=== PATIENT | female | born 1940 | race Caucasian/White ===

== ENCOUNTER 2021-03-28 00:44 | Inpatient (IN) | payer MEDICARE ==
[~2021-03-28] VITALS: Ht 170.2 cm; Wt 71.2 kg
[2021-03-28] MEDS ORDERED: IV NORMAL SALINE 1000ML BAG 1,000 ML IV ONE (01:00)
--- NOTE | 2021-03-28 01:07 | PHYS DOC ---
Past Medical History Past Medical History: COPD Additional Past Medical Histor: Poor historian Past Medical History Limited secondary to poor historian and hard of hearing. Past Surgical History Limited secondary to poor historian and hard of hearing. Smoking Status: Current Every Day Smoker Alcohol Use: None Drug Use: None General Adult EDM: Chief Complaint: Shortness of breath HPI: HPI: Patient is a 80-year-old female with past medical history of COPD who continues to smoke 3 packs a day presents via EMS with 2-week history of generalized malaise, shortness of breath, and diarrhea. Denies known sick contacts. Denies known exposure to COVID-19. Patient reports she has not received the COVID-19 vaccinations. EMS reports upon their arrival patient was noted to have a O2 sat down to 80% on room air. EMS denies that patient wears oxygen at baseline. Patient reportedly has had decreased appetite and not feeling well for the past 10 to 14 days. Patient also with report of unwitnessed fall last night at approximately 2130 in her bedroom where she did strike the right side of her head. History of present illness limited secondary to poor historian and hard of hearing. Review of Systems: Review of Systems: Constitutional: Denies fever or chills ; reports decreased appetite, generalized malaise, and weakness HENT: Denies nasal congestion or epistaxis Respiratory: Reports cough and shortness of breath Cardiovascular: Denies chest pain or palpitations GI: Denies abdominal pain, nausea, or vomiting; reports diarrhea : Denies dysuria or hematuria Musculoskeletal: Denies neck pain Integument: Denies laceration; reports bruising to right forehead Neurologic: Denies headache Review of systems limited secondary to poor historian and hard of hearing. Heart Score: C/O Chest Pain: N/A Current Medications: Current Medications Medications (Trade) Dose Ordered Sig/[place] Start Time Stop Time Status Last Admin Dose Admin Sodium Chloride 1,000 ml @ 1,000 mls/hr 1X ONCE 03/28/21 01:00 03/28/21 01:59 UNV Physical Exam: PE: Constitutional: Elderly, well nourished, no acute distress, non-toxic appearance, hard of hearing HENT: Normocephalic, atraumatic Eyes: PERRL, EOMI, conjunctiva normal, no discharge Neck: Normal range of motion, no tenderness, supple Lungs & Thorax: No respiratory distress, equal chest rise and fall, mild crackles at bases Abdomen: Soft, no tenderness, no guarding/rebound tenderness/distention Skin: Warm, dry, no erythema, no rash Extremities: No tenderness, ROM intact, no edema Neurologic: Alert and oriented X name, no focal deficits noted Psychologic: Affect normal, judgment normal EKG: EKG: @0057 Sinus tachycardia at 103bpm, NO ST elevation, baseline artifact noted primarily to V3, QRS 102ms, QT/QTc 348/458ms Radiology/Procedures: Radiology/Procedures: PROCEDURE: CT HEAD AND CERVICAL SPINE WO CT head without contrast: Reason for examination: Pain after fall. Helical images were obtained through the brain with no contrast administered. Reconstruction was performed in sagittal and coronal planes. Exposure: One or more of the following individualized dose reduction techniques were utilized for this examination: 1. Automated exposure control 2. Adjustment of the mA and/or kV according to patient size 3. Use of iterative reconstruction technique. Ventricular systems are symmetric and not abnormally dilated. No midline shift is seen. There is no evidence of intracranial hemorrhage. There is however some deep white matter microvascular ischemic type changes in the frontal and parietal lobes. There are also small lacunar infarcts in the right centrum semiovale and in the left basal ganglia. No masses or edema are evident. No abnormalities of seen at the orbits. The paranasal sinuses are clear. Mastoid air cells show some opacity which may reflect mastoiditis. No acute skull abnormality is seen. There does appear to be a right frontal convexity scalp hematoma. IMPRESSION: Cerebral atrophy with some microvascular ischemic changes. Chronic lacunar infarcts in the right centrum semiovale and left basal ganglia. No acute intracranial abnormality evident. Right frontal convexity scalp hematoma. CT cervical spine without contrast: Helical images were obtained through the cervical spine from skull base through the thoracic apices with no contrast administered. Reconstruction was performed in sagittal and coronal planes. The C1 ring is intact. The odontoid process appears to be intact and normally centered between the lateral masses of C1. The vertebral bodies of the cervical spine are normally aligned anteriorly and posteriorly. No acute fracture or subl uxation is seen. Posterior elements appear to be intact. There is some hypertrophic spurring off the endplates at the C4-5 disc level without significant spinal stenosis. Remaining intervertebral discs are fairly well- maintained. Prevertebral soft tissues are normal. IMPRESSION: Degenerative disc disease at the C4-5 disc level without spinal stenosis. No acute abnormality in the cervical spine. CT angiogram of the chest and CT abdomen and pelvis with contrast: Helical images were obtained through the chest with intravenous administration of 99 cc Omnipaque 350 using PE protocol with 3-D MIPS reconstruction in sagittal and coronal planes. Helical images were then obtained through the abdomen and pelvis with reconstruction in sagittal and coronal planes. Examination is compromised by motion artifact. No abnormality seen at the thyroid gland. The trachea and mainstem bronchi show no intraluminal lesions. No abnormality seen at the esophagus. The thoracic aorta shows no aneurysmal dilatation or dissection. The heart size is normal with no pericardial effusion. There is no pulmonary embolus. There are emphysematous changes bilaterally throughout the lung garcia and some increase in the markings peripherally consistent with COPD and interstitial fibrosis. No consolidated infiltrates, pleural effusions or pneumothorax are seen. No acute bony abnormalities are seen. No abnormality seen at the liver or spleen. The pancreas shows a small 5.5 mm cystic lesion in the pancreatic tail. Gallbladder is not distended. There appears to be a soft tissue nodule in the region of the right adrenal gland measuring 4 x 2.3 cm in greatest dimension. There is also some soft tissue fullness in the region of the left adrenal gland measuring 2.5 x 1.3 cm in great est dimension. These may represent an adrenal adenoma however adrenal metastases cannot be excluded. Recommend clinical correlation follow-up. The kidneys show no renal masses, renal calculi, hydronephrosis or evidence of obstructive uropathy. There is some diverticulosis in the sigmoid colon without diverticulitis or colitis. Small intestinal tract shows no abnormal dilatation or wall thickening and no obstruction. No abnormality seen at the stomach or duodenum. No abnormality seen at the bladder. Uterus appears atrophic. No free fluid or free air is seen in the abdomen or pelvis. There are some degenerative changes at the L5-S1 disc level. No acute bony abnormalities are seen in the lumbar spine or pelvis. IMPRESSION: No evidence of pulmonary embolus. Diffuse emphysematous changes bilaterally with some interstitial fibrosis. 5.5 mm cystic lesion in the tail the pancreas. Nodules in the adrenal glands bilaterally which may represent adenoma however adrenal metastases cannot be excluded. Recommend clinical correlation follow-up. Diverticulosis in the sigmoid colon without diverticulitis. Degenerative disc disease at the L5-S1 disc level. Electronically signed by: Barbi Del Toro MD (03/28/2021 4:03 AM) [facility] Course & Med Decision Making: Course & Med Decision Making Pertinent Labs and Imaging studies reviewed. (See chart for details) Patient presents via EMS with report of shortness of breath. Patient found to be hypoxic upon their arrival down to 80% on room air. Improved with supplemental O2. Patient also with concern for possible Covid 19 infection. Rapid Covid negative. Covid PCR pending. EKG stable. Labs obtained and posted to chart. Hyponatremia noted. Hypokalemia addressed. Patient with history of diarrhea. CTA chest without acute finding. CT abdomen/pelvis also without acute finding. Hypertension addressed. Patient requiring admission for further evaluation and treatment. Discussed with Dr. Erickson (hospitalist) who is in agreement with admission. Discussed findings and plan with patient, who acknowledges understanding and agreement. COVID-19 CRITERIA: The patient was evaluated during the global COVID-19 pandemic, and that diagnosis was suspected/considered upon their initial presentation. Their evaluation, treatment and testing was consistent with current guidelines for patients who present with complaints or symptoms that may be related to COVID-19. [employer] Disclaimer: [employer] Disclaimer: This electronic medical record was generated, in whole or in part, using a voice recognition dictation system. Departure Departure Impression: Primary Impression: Respiratory failure Qualified Codes: J96.01 - Acute respiratory failure with hypoxia Additional Impressions: Hypoxia Suspected 2019 novel coronavirus infection Diarrhea Qualified Codes: R19.7 - Diarrhea, unspecified Hyponatremia Hypokalemia Hypertension Qualified Codes: I10 - Essential (primary) hypertension Disposition: ADMITTED INPATIENT Admitting Physician: SOPHIA Vargas) Condition: STABLE COVID-19 Assessment: COVID-19 Patient Risks: Age 65 or older: Yes Sign of co-morbidity: Yes Exp to person + for COVID: No Exp to PUI: No Travel from affected area: No Lower respiratory symptoms: No Fever: Yes Other: Yes PPE Use: Full PPE with N95 mask or PAPR: Yes Critical Care Time Critical care time was 30 minutes which includes time at bedside, spent in discussion of patient's care with specialists and/or family members, with interpretation of laboratory and/or radiological studies and is exclusive of procedures. RADHA BENAVIDES DO Mar 28, 2021 01:07
[2021-03-28 01:09] LABS: BASO % 0 % (0-3); EOS % 0 % (0-3); HEMOGLOBIN 15.1 g/dL (12.0-15.5); LYMPH # 0.2 x10^3/uL (1.0-4.8); LYMPH % 2 % (24-48); MEAN CORPUSCULAR HEMOGLOBIN 33 pg (25-35); MEAN CORPUSCULAR HGB CONC 36 g/dL (31-37); MEAN CORPUSCULAR VOLUME 92 fL (79-100); MONO # 0.5 x10^3/uL (0.0-1.1); MONO % 5 % (0-9); NEUT # 9.3 x10^3/uL (1.8-7.7); NEUT % 93 % (31-73); PLATELET COUNT 184 x10^3/uL (140-400); RED BLOOD COUNT 4.57 x10^6/uL (3.50-5.40); RED CELL DISTRIBUTION WIDTH 13.1 % (11.5-14.5)
[2021-03-28] MEDS ORDERED: LABETALOL 20 MG/4 ML DISP.SYRIN. IVP ONE (01:15)
[2021-03-28 01:21] LABS: BILIRUBIN,URINE NEGATIVE (NEG); CLARITY,URINE CLOUDY; COLOR,URINE YELLOW; NITRITE,URINE NEGATIVE (NEG); PROTEIN,URINE >=300 mg/dL (NEG-TRACE)
[2021-03-28 01:27] LABS: INFLUENZA A PATIENT NEGATIVE (NEGATIVE); INFLUENZA B PATIENT NEGATIVE (NEGATIVE)
[2021-03-28 01:34] LABS: AMORPHOUS SEDIMENT,UR PRESENT /HPF; BACTERIA,URINE FEW /HPF (0-FEW)
[2021-03-28 01:43] LABS: CALCIUM 7.7 mg/dL (8.5-10.1); CREATININE 0.9 mg/dL (0.6-1.0); GFR 60.4
[2021-03-28 01:50] LABS: ALBUMIN 3.1 g/dL (3.4-5.0); ALBUMIN/GLOBULIN RATIO 1.1 (1.0-1.7); MAGNESIUM 1.9 mg/dL (1.8-2.4); TOTAL BILIRUBIN 0.6 mg/dL (0.2-1.0)
[2021-03-28] MEDS ORDERED: ONDANSETRON PF 4 MG/2 ML VIAL. IVP PRN (02:30)
[2021-03-28 02:37] LABS: % BANDS 1 % (0-9); % LYMPHS 4 % (24-48); % MONOS 6 % (0-10); % SEGS 89 % (35-66); PLT ESTIMATE ADEQUATE (ADEQUATE)
[2021-03-28] MEDS ORDERED: IOHEXOL 350 MG/ML 100 ML VIAL. IV ONE (02:45)
[2021-03-28] MEDS ORDERED: CONTRAST GIVEN. MC PRN (03:00)
[2021-03-28] MEDS ORDERED: LABETALOL 20 MG/4 ML DISP.SYRIN. IVP PRN (03:30)
[2021-03-28 03:55] VITALS: BP 157/76
--- NOTE | 2021-03-28 04:05 | RAD ---
CT head without contrast: Reason for examination: Pain after fall. Helical images were obtained through the brain with no contrast administered. Reconstruction was perf ormed in sagittal and coronal planes. Exposure: One or more of the following individualized dose reduction techniques were utilized for thi s examination: 1. Automated exposure control 2. Adjustment of the mA and/or kV according to patient size 3. Use of iterative reconstruction technique. Ventricular systems are symmetric and not abnormally dilated. No midline shift is seen. There is no e vidence of intracranial hemorrhage. There is however some deep white matter microvascular ischemic ty pe changes in the frontal and parietal lobes. There are also small lacunar infarcts in the right cent rum semiovale and in the left basal ganglia. No masses or edema are evident. No abnormalities of seen at the orbits. The paranasal sinuses are clear. Mastoid air cells show some opacity which may reflec t mastoiditis. No acute skull abnormality is seen. There does appear to be a right frontal convexity scalp hematoma. IMPRESSION: Cerebral atrophy with some microvascular ischemic changes. Chronic lacunar infarcts in the right centrum semiovale and left basal ganglia. No acute intracranial abnormality evident. Right frontal convexity scalp hematoma. CT cervical spine without contrast: Helical images were obtained through the cervical spine from skull base through the thoracic apices w ith no contrast administered. Reconstruction was performed in sagittal and coronal planes. The C1 ring is intact. The odontoid process appears to be intact and normally centered between the la teral masses of C1. The vertebral bodies of the cervical spine are normally aligned anteriorly and po steriorly. No acute fracture or subluxation is seen. Posterior elements appear to be intact. There is some hypertrophic spurring off the endplates at the C4-5 disc level without significant spinal steno sis. Remaining intervertebral discs are fairly well-maintained. Prevertebral soft tissues are normal. IMPRESSION: Degenerative disc disease at the C4-5 disc level without spinal stenosis. No acute abnormality in the cervical spine. CT angiogram of the chest and CT abdomen and pelvis with contrast: Helical images were obtained through the chest with intravenous administration of 99 cc Omnipaque 350 using PE protocol with 3-D MIPS reconstruction in sagittal and coronal planes. Helical images were t hen obtained through the abdomen and pelvis with reconstruction in sagittal and coronal planes. [place] is compromised by motion artifact. No abnormality seen at the thyroid gland. The trachea and mainstem bronchi show no intraluminal lesio ns. No abnormality seen at the esophagus. The thoracic aorta shows no aneurysmal dilatation or dissec tion. The heart size is normal with no pericardial effusion. There is no pulmonary embolus. There are emphysematous changes bilaterally throughout the lung garcia and some increase in the markings perip herally consistent with COPD and interstitial fibrosis. No consolidated infiltrates, pleural effusion s or pneumothorax are seen. No acute bony abnormalities are seen. No abnormality seen at the liver or spleen. The pancreas shows a small 5.5 mm cystic lesion in the pa ncreatic tail. Gallbladder is not distended. There appears to be a soft tissue nodule in the region o f the right adrenal gland measuring 4 x 2.3 cm in greatest dimension. There is also some soft tissue fullness in the region of the left adrenal gland measuring 2.5 x 1.3 cm in greatest dimension. These may represent an adrenal adenoma however adrenal metastases cannot be excluded. Recommend clinical co rrelation follow-up. The kidneys show no renal masses, renal calculi, hydronephrosis or evidence of o bstructive uropathy. There is some diverticulosis in the sigmoid colon without diverticulitis or coli tis. Small intestinal tract shows no abnormal dilatation or wall thickening and no obstruction. No ab normality seen at the stomach or duodenum. No abnormality seen at the bladder. Uterus appears atrophic. No free fluid or free air is seen in the abdomen or pelvis. There are some degenerative changes at the L5-S1 disc level. No acute bony abnorm alities are seen in the lumbar spine or pelvis. IMPRESSION: No evidence of pulmonary embolus. Diffuse emphysematous changes bilaterally with some interstitial fibrosis. 5.5 mm cystic lesion in the tail the pancreas. Nodules in the adrenal glands bilaterally which may represent adenoma however adrenal metastases [place] ot be excluded. Recommend clinical correlation follow-up. Diverticulosis in the sigmoid colon without diverticulitis. Degenerative disc disease at the L5-S1 disc level. Electronically signed by: Barbi Del Toro MD (03/28/2021 4:03 AM) [facility]
[2021-03-28] MEDS ORDERED: POTASSIUM CHLORIDE 10 MEQ TABLET.ER. PO ONE (04:30)
[2021-03-28 07:00] VITALS: BP 152/50
--- NOTE | 2021-03-28 10:52 | PDOC1 ---
History and Physical Date of Admission Date of Admission DATE: 03/28/21 TIME: 10:51 Identification/Chief Complaint Chief Complaint SOA, CHILLS, FALL WEAKNESS X 10 DAYS, WORSE History of Present Illness History of Present Illness 80-year-old female with past medical history of COPD continues to smoke 3 packs a day presented via EMS last night with 2-week history of generalized malaise, shortness of breath, and diarrhea. covid pos here Denies known exposure to COVID-19. she has not received the COVID-19 vaccinations. EMS reported upon their arrival patient was noted to have a O2 sat down to 80% on room air. EMS denies that patient wears oxygen at baseline. Patient reportedly has had decreased appetite and not feeling well for the past 10 to 14 days. Patient found to be hypoxic upon their arrival down to 80% on room air. Improved with supplemental O2. concern for possible Covid 19 infection. Rapid Covid negative. Covid PCR pos. EKG stable. Hyponatremia noted. Hypokalemia addressed. Patient with history of diarrhea. unwitnessed fall last night at approximately 2130 9-04 in her bedroom where she did strike the right side of her head Past Medical History Past Medical History Past Medical History Past Medical History: COPD Additional Past Medical Histor: Poor historian Past Medical History poor historian and hard of hearing./ COPD Past Surgical History poor historian and hard of hearing. Smoking Status: Current Every Day Smoker Alcohol Use: None Drug Use: None fhx copd Cardiovascular: HTN Psych: Anxiety Musculoskeletal: Osteoarthritis Family History Family History: Heart Disease, High Cholestrol, Hypertension Social History Smoke: <1 pack per day ALCOHOL: rare Drugs: None Current Problem List Problem List Problems Medical Problems: (1) Diarrhea Status: Acute (2) Hypertension Status: Acute (3) Hypokalemia Status: Acute (4) Hyponatremia Status: Acute (5) Hypoxia Status: Acute (6) Respiratory failure Status: Acute (7) Suspected 2019 novel coronavirus infection Status: Acute Current Medications Current Medications Current Medications Sodium Chloride 1,000 ml @ 1,000 mls/hr 1X ONCE IV Last administered on 03/28/21at 01:51; Start 03/28/21 at 01:00; Stop 03/28/21 at 01:59; Status DC Labetalol HCl (Normodyne Iv Push) 10 mg 1X ONCE IVP Last administered on 03/28/21at 01:52; Start 03/28/21 at 01:15; Stop 03/28/21 at 01:49; Status DC Ondansetron HCl (Zofran) 4 mg PRN Q8HRS PRN IVP NAUSEA/VOMITING; Start 03/28/21 at 02:30; Stop 03/29/21 at 02:29 Iohexol (Omnipaque 350 Mg/ml) 100 ml 1X ONCE IV ; Start 03/28/21 at 02:45; Stop 03/28/21 at 02:49; Status DC Info (CONTRAST GIVEN -- Rx MONITORING) 1 each PRN DAILY PRN MC SEE COMMENTS; Start 03/28/21 at 03:00; Stop 03/30/21 at 02:59 Labetalol HCl (Normodyne Iv Push) 10 mg PRN Q2HR PRN IVP HYPERTENSION; Start at 03:30; Stop 03/29/21 at 03:29 Potassium Chloride (Klor-Con) 40 meq 1X ONCE PO Last administered on 03/28/21at 04:37; Start 03/28/21 at 04:30; Stop 03/28/21 at 04:31; Status DC Allergies Allergies: Coded Allergies: No Known Drug Allergies (Unverified , 03/28/21) ROS Review of System Constitutional: Denies fever or chills ; reports decreased appetite, generalized malaise, and weakness HENT: Denies nasal congestion or epistaxis Respiratory: POS cough and shortness of breath Cardiovascular: NO chest pain or palpitations GI: Denies abdominal pain, nausea, or vomiting; reports diarrhea : Denies dysuria or hematuria Musculoskeletal: Denies neck pain Integument: Denies laceration; reports bruising to right forehead Neurologic: Denies headache 14 PT Review of systems limited secondary to poor historian General: YES: Chills, Fatigue, Malaise, Appetite PSYCHOLOGICAL ROS: YES: Disorientation, Memory difficulties Eyes: Yes Decreased vision HEENT: No: Heacaches, Visual Changes, Hearing change, Nasal congestion, Nasal discharge, Oral lesions, Sinus pain, Sore Throat, Epistaxis, Sneezing, Snoring, Tinnitus, Vertigo, Vocal changes, Other ALLERGY AND IMMUNOLOGY: No: Hives, Insect Bite Sensitivity, Itchy/Watery Eyes, Nasal Congestion, Post Nasal Drip, Seasonal Allergies, Other Hematological and Lymphatic: No: Bleeding Problems, Blood Clots, Blood Transfusions, Brusing, Night Sweats, Pallor, Swollen Lymph Nodes, Other ENDOCRINE: No: Breast Changes, Galactorrhea, Hair Pattern Changes, Hot Flashes, Malaise/lethargy, Mood Swings, Palpitations, Polydipsia/polyuria, Skin Changes, Temperature Intolerance, Unexpected Weight Changes, Other Breast: No New/Changing Breast Lumps, No Nipple changes, No Nipple discharge, No Other Respiratory: YES: Cough, Shortness of breath Cardiovascular: No Chest Pain, No Palpitations, No Orthopnea, No Paroxysmal Noc. Dyspnea, No Edema, No Lt Headedness, No Other Gastrointestinal: No Nausea, No Vomiting, No Abdominal Pain, No Diarrhea, No Constipation, No Melena, No Hematochezia, No Other Genitourinary: No Dysuria, No Frequency, No Incontinence, No Hematuria, No Ret ention, No Discharge, No Urgency, No Pain, No Flank Pain, No Other, No , No , No , No , No , No , No Musculoskeletal: Yes Joint Stiffness; No Gait Disturbance, No Joint Pain, No Joint Swelling, No Muscle Pain, No Muscular Weakness, No Pain In:, No Swelling In:, No Other Neurological: No Behavorial Changes, No Bowel/Bladder ControlChng, No Confusion, No Dizziness, No Gait Disturbance, No Headaches, No Impaired Coord/balance, No Memory Loss, No Numbness/Tingling, No Seizures, No Speech Problems, No Tremors, No Visual Changes, No Weakness, No Other Skin: Yes Dry Skin; No Eczema, No Hair Changes, No Lumps, No Mole Changes, No Mottling, No Nail Changes, No Pruritus, No Rash, No Skin Lesion Changes, No Other, No Acne Physical Exam Physical Exam onstitutional: Elderly, well nourished, no acute distress, non-toxic appearance, hard of hearing, confused HENT: Normocephalic, atraumatic Eyes: PERRL, EOMI, conjunctiva normal, no discharge Neck: Normal range of motion, no tenderness, supple Lungs & Thorax: No respiratory distress, equal chest rise and fall, mild crackles at bases Abdomen: Soft, no tenderness, no guarding/rebound tenderness/distention Skin: Warm, dry, no erythema, no rash Extremities: No tenderness, ROM intact, no edema Neurologic: Alert and oriented X name, no focal deficits noted General: Alert, Cooperative, No acute distress HEENT: Atraumatic, Mucous membr. moist/pink Heart: RRR, no gallops Breasts: Not examined Abdomen: Normal bowel sounds, Soft Rectal Exam: not examined PELVIC: Examination not indicated Extremities: No cyanosis Neuro: Normal speech, Cranial nerves 3-12 NL Psych/Mental Status: Mental status NL, Mood NL Vitals Vitals Vital Signs Date Time Temp Pulse Resp B/P (MAP) Pulse Ox O2 Delivery O2 Flow Rate FiO2 03/28/21 07:00 100.0 79 20 152/50 (84) 94 Nasal Cannula 100.0 03/28/21 05:16 3.0 Labs Labs Laboratory Tests Test 03/28/21 00:57 03/28/21 01:00 03/28/21 01:11 03/28/21 01:23 White Blood Count 10.0 x10^3/uL (4.0-11.0) Red Blood Count 4.57 x10^6/uL (3.50-5.40) Hemoglobin 15.1 g/dL (12.0-15.5) Hematocrit 42.0 % (36.0-47.0) Mean Corpuscular Volume 92 fL (79-100) Mean Corpuscular Hemoglobin 33 pg (25-35) Mean Corpuscular Hemoglobin Concent 36 g/dL (31-37) Red Cell Distribution Width 13.1 % (11.5-14.5) Platelet Count 184 x10^3/uL (140-400) Neutrophils (%) (Auto) 93 % (31-73) Lymphocytes (%) (Auto) 2 % (24-48) Monocytes (%) (Auto) 5 % (0-9) Eosinophils (%) (Auto) 0 % (0-3) Basophils (%) (Auto) 0 % (0-3) Neutrophils # (Auto) 9.3 x10^3/uL (1.8-7.7) Lymphocytes # (Auto) 0.2 x10^3/uL (1.0-4.8) Monocytes # (Auto) 0.5 x10^3/uL (0.0-1.1) Eosinophils # (Auto) 0.0 x10^3/uL (0.0-0.7) Basophils # (Auto) 0.0 x10^3/uL (0.0-0.2) Segmented Neutrophils % 89 % (35-66) Band Neutrophils % 1 % (0-9) Lymphocytes % 4 % (24-48) Monocytes % 6 % (0-10) Platelet Estimate Adequate (ADEQUATE) Lactic Acid Level 1.8 mmol/L (0.4-2.0) Influenza Type A Antigen Negative (NEGATIVE) Influenza Type B Antigen Negative (NEGATIVE) SARS-CoV-2 Antigen (Rapid) Negative (NEGATIVE) Urine Collection Type U cath Urine Color Yellow Urine Clarity Cloudy Urine pH 6.0 (<5.0-8.0) Urine Specific [place] >=1.030 (1.000-1.030) Urine Protein >=300 mg/dL (NEG-TRACE) Urine Glucose (UA) Negative mg/dL (NEG) Urine Ketones (Stick) 40 mg/dL (NEG) Urine Blood Large (NEG) Urine Nitrite Negative (NEG) Urine Bilirubin Negative (NEG) Urine Urobilinogen Dipstick 1.0 mg/dL (0.2 mg/dL) Urine Leukocyte Esterase Negative (NEG) Urine RBC 11-20 /HPF (0-2) Urine WBC 5-10 /HPF (0-4) Urine Squamous Epithelial Cells Few /LPF Urine Amorphous Sediment Present /HPF Urine Bacteria Few /HPF (0-FEW) Urine Mucus Marked /LPF Sodium Level 126 mmol/L (136-145) Potassium Level 3.0 mmol/L (3.5-5.1) Chloride Level 90 mmol/L (98-107) Carbon Dioxide Level 27 mmol/L (21-32) Anion Gap 9 (6-14) Blood Urea Nitrogen 13 mg/dL (7-20) Creatinine 0.9 mg/dL (0.6-1.0) Estimated GFR (Cockcroft-Gault) 60.4 BUN/Creatinine Ratio 14 (6-20) Glucose Level 145 mg/dL (70-99) Calcium Level 7.7 mg/dL (8.5-10.1) Magnesium Level 1.9 mg/dL (1.8-2.4) Total Bilirubin 0.6 mg/dL (0.2-1.0) Aspartate Amino Transf (AST/SGOT) 56 U/L (15-37) Alanine Aminotransferase (ALT/SGPT) 42 U/L (14-59) Alkaline Phosphatase 95 U/L (46-116) Creatine Kinase 507 U/L (26-192) Creatine Kinase MB (Mass) 4.0 ng/mL (0.0-3.6) Creatine Kinase MB Relative Index 0.8 % (0-4) Troponin I Quantitative 0.044 ng/mL (0.000-0.055) XO-Uur-F-Type Natriuretic Peptide 462 pg/mL (0-449) Total Protein 6.0 g/dL (6.4-8.2) Albumin 3.1 g/dL (3.4-5.0) Albumin/Globulin Ratio 1.1 (1.0-1.7) Laboratory Tests Test 03/28/21 00:57 03/28/21 01:00 03/28/21 01:11 03/28/21 01:23 White Blood Count 10.0 x10^3/uL (4.0-11.0) Red Blood Count 4.57 x10^6/uL (3.50-5.40) Hemoglobin 15.1 g/dL (12.0-15.5) Hematocrit 42.0 % (36.0-47.0) Mean Corpuscular Volume 92 fL (79-100) Mean Corpuscular Hemoglobin 33 pg (25-35) Mean Corpuscular Hemoglobin Concent 36 g/dL (31-37) Red Cell Distribution Width 13.1 % (11.5-14.5) Platelet Count 184 x10^3/uL (140-400) Neutrophils (%) (Auto) 93 % (31-73) Lymphocytes (%) (Auto) 2 % (24-48) Monocytes (%) (Auto) 5 % (0-9) Eosinophils (%) (Auto) 0 % (0-3) Basophils (%) (Auto) 0 % (0-3) Neutrophils # (Auto) 9.3 x10^3/uL (1.8-7.7) Lymphocytes # (Auto) 0.2 x10^3/uL (1.0-4.8) Monocytes # (Auto) 0.5 x10^3/uL (0.0-1.1) Eosinophils # (Auto) 0.0 x10^3/uL (0.0-0.7) Basophils # (Auto) 0.0 x10^3/uL (0.0-0.2) Segmented Neutrophils % 89 % (35-66) Band Neutrophils % 1 % (0-9) Lymphocytes % 4 % (24-48) Monocytes % 6 % (0-10) Platelet Estimate Adequate (ADEQUATE) Lactic Acid Level 1.8 mmol/L (0.4-2.0) Influenza Type A Antigen Negative (NEGATIVE) Influenza Type B Antigen Negative (NEGATIVE) SARS-CoV-2 Antigen (Rapid) Negative (NEGATIVE) Urine Collection Type U cath Urine Color Yellow Urine Clarity Cloudy Urine pH 6.0 (<5.0-8.0) Urine Specific [place] >=1.030 (1.000-1.030) Urine Protein >=300 mg/dL (NEG-TRACE) Urine Glucose (UA) Negative mg/dL (NEG) Urine Ketones (Stick) 40 mg/dL (NEG) Urine Blood Large (NEG) Urine Nitrite Negative (NEG) Urine Bilirubin Negative (NEG) Urine Urobilinogen Dipstick 1.0 mg/dL (0.2 mg/dL) Urine Leukocyte Esterase Negative (NEG) Urine RBC 11-20 /HPF (0-2) Urine WBC 5-10 /HPF (0-4) Urine Squamous Epithelial Cells Few /LPF Urine Amorphous Sediment Present /HPF Urine Bacteria Few /HPF (0-FEW) Urine Mucus Marked /LPF Sodium Level 126 mmol/L (136-145) Potassium Level 3.0 mmol/L (3.5-5.1) Chloride Level 90 mmol/L (98-107) Carbon Dioxide Level 27 mmol/L (21-32) Anion Gap 9 (6-14) Blood Urea Nitrogen 13 mg/dL (7-20) Creatinine 0.9 mg/dL (0.6-1.0) Estimated GFR (Cockcroft-Gault) 60.4 BUN/Creatinine Ratio 14 (6-20) Glucose Level 145 mg/dL (70-99) Calcium Level 7.7 mg/dL (8.5-10.1) Magnesium Level 1.9 mg/dL (1.8-2.4) Total Bilirubin 0.6 mg/dL (0.2-1.0) Aspartate Amino Transf (AST/SGOT) 56 U/L (15-37) Alanine Aminotransferase (ALT/SGPT) 42 U/L (14-59) Alkaline Phosphatase 95 U/L (46-116) Creatine Kinase 507 U/L (26-192) Creatine Kinase MB (Mass) 4.0 ng/mL (0.0-3.6) Creatine Kinase MB Relative Index 0.8 % (0-4) Troponin I Quantitative 0.044 ng/mL (0.000-0.055) QP-Tbd-P-Type Natriuretic Peptide 462 pg/mL (0-449) Total Protein 6.0 g/dL (6.4-8.2) Albumin 3.1 g/dL (3.4-5.0) Albumin/Globulin Ratio 1.1 (1.0-1.7) Images Images CT head without contrast: Reason for examination: Pain after fall. Helical images were obtained through the brain with no contrast administered. Reconstruction was performed in sagittal and coronal planes. Exposure: One or more of the following individualized dose reduction techniques were utilized for this examination: 1. Automated exposure control 2. Adjustment of the mA and/or kV according to patient size 3. Use of iterative reconstruction technique. Ventricular systems are symmetric and not abnormally dilated. No midline shift is seen. There is no evidence of intracranial hemorrhage. There is however some deep white matter microvascular ischemic type changes in the frontal and parietal lobes. There are also small lacunar infarcts in the right centrum semiovale and in the left basal ganglia. No masses or edema are evident. No abnormalities of seen at the orbits. The paranasal sinuses are clear. Mastoid air cells show some opacity which may reflect mastoiditis. No acute skull abnormality is seen. There does appear to be a right frontal convexity scalp hematoma. IMPRESSION: Cerebral atrophy with some microvascular ischemic changes. Chronic lacunar infarcts in the right centrum semiovale and left basal ganglia. No acute intracranial abnormality evident. Right frontal convexity scalp hematoma. CT cervical spine without contrast: Helical images were obtained through the cervical spine from skull base through the thoracic apices with no contrast administered. Reconstruction was performed in sagittal and coronal planes. The C1 ring is intact. The odontoid process appears to be intact and normally centered between the lateral masses of C1. The vertebral bodies of the cervical spine are normally aligned anteriorly and posteriorly. No acute fracture or subluxation is seen. Posterior elements appear to be intact. There is some hypertrophic spurring off the endplates at the C4-5 disc level without significant spinal stenosis. Remaining intervertebral discs are fairly well- maintained. Prevertebral soft tissues are normal. IMPRESSION: Degenerative disc disease at the C4-5 disc level without spinal stenosis. No acute abnormality in the cervical spine. CT angiogram of the chest and CT abdomen and pelvis with contrast: Helical images were obtained through the chest with intravenous administration of 99 cc Omnipaque 350 using PE protocol with 3-D MIPS reconstruction in sag ittal and coronal planes. Helical images were then obtained through the abdomen and pelvis with reconstruction in sagittal and coronal planes. Examination is compromised by motion artifact. No abnormality seen at the thyroid gland. The trachea and mainstem bronchi show no intraluminal lesions. No abnormality seen at the esophagus. The thoracic aorta shows no aneurysmal dilatation or dissection. The heart size is normal with no pericardial effusion. There is no pulmonary embolus. There are emphysematous changes bilaterally throughout the lung garcia and some increase in the markings peripherally consistent with COPD and interstitial fibrosis. No consolidated infiltrates, pleural effusions or pneumothorax are seen. No acute bony abnormalities are seen. No abnormality seen at the liver or spleen. The pancreas shows a small 5.5 mm cystic lesion in the pancreatic tail. Gallbladder is not distended. There appears to be a soft tissue nodule in the region of the right adrenal gland measuring 4 x 2.3 cm in greatest dimension. There is also some soft tissue fullness in the region of the left adrenal gland measuring 2.5 x 1.3 cm in greatest dimension. These may represent an adrenal adenoma however adrenal metastases cannot be excluded. Recommend clinical correlation follow-up. The kidneys show no renal masses, renal calculi, hydronephrosis or evidence of obstructive uropathy. There is some diverticulosis in the sigmoid colon without diverticulitis or colitis. Small intestinal tract shows no abnormal dilatation or wall thickening and no obstruction. No abnormality seen at the stomach or duodenum. No abnormality seen at the bladder. Uterus appears atrophic. No free fluid or free air is seen in the abdomen or pelvis. There are some degenerative changes at the L5-S1 disc level. No acute bony abnormalities are seen in the lumbar spine or pelvis. IMPRESSION: No evidence of pulmonary embolus. Diffuse emphysematous changes bilaterally with some interstitial fibrosis. 5.5 mm cystic lesion in the tail the pancreas. Nodules in the adrenal glands bilaterally which may represent adenoma however adrenal metastases cannot be excluded. Recommend clinical correlation follow-up. Diverticulosis in the sigmoid colon without diverticulitis. Degenerative disc disease at the L5-S1 disc level. Electronically signed by: Barbi Davidson MD (03/28/2021 4:03 AM) [facility] DICTATED and SIGNED BY: BARBI DAVIDSON MD DATE: 03/28/21 [id number] 0 talk about your own wishes for healthcare in case youre ever not able to tell your loved ones or healthcare team what your wishes are. If you became really sick tomorrow, would your loved ones or healthcare team know what your wishes were? Here are some examples of different sets of goals and health care directiv es for your conversations: My wish is to use all medical therapies including resuscitation (such as CPR) and artificial life-sustaining treatments (such as machines and medicine) in an intensive care unit, to keep me alive if at all possible. My wish is to live as long as possible, but I dont want attempts to bring me back to life if my heart and breathing stop. I would like full medical care but without using resuscitation or artificial life-sustaining intensive treatments, if these are unlikely to make me live longer or restore me to a certain quality of life. I will accept treatments that try to fix medical problems, but if Im not getting better or going to have a certain quality of life, I would want to switch to focusing only on my comfort and letting my happen naturally. My wish is for healthcare to focus on my comfort and lessen suffering. I would like medical care that focuses only on my quality of life and that allows me to naturally. Consider: What does a good quality of life m [place] for me? For many people, it is the ability to live independently and tell their own story. I may define it differently. Under what circumstances would I not want to be kept alive by medical treatments, resuscitation, or intensive care? What kind of changes to my health or life might make me change my mind? If I clearly am facing the last chapter of my life, how do I want the story to end? Who do I want to speak for me if I cant speak for myself? Do they understand my preferences? Are they willing to assume the role of my Durable Power of Production Dispatcher? Can I change my Goals of Care Designation? Yes, your Goals of Care Designation can be changed at any time. It should be reviewed if: your health condition changes your circumstances change (such as new understanding) you are transferred or admitted to another healthcare setting dpoa review, to pt portal 17 min and question review VTE Prophylaxis Ordered VTE Prophylaxis Devices: No VTE Pharmacological Prophylaxi: Yes Assessment/Plan Assessment/Plan impression COVID 19 POS PNEUMONIA mild hyponatremia, hypokalemia Diffuse emphysematous changes bilaterally with some interstitial fibrosis. 5.5 mm cystic lesion in the tail the pancreas. Nodules in the adrenal glands bilaterally which may represent adenoma however adrenal metastases cannot be excluded. Recommend clinical correlation follow-up. Diverticulosis in the sigmoid colon without diverticulitis. Degenerative disc disease at the L5-S1 disc level. Cerebral atrophy with microvascular ischemic changes. Chronic lacunar infarcts in the right centrum semiovale and left basal ganglia. No acute intracranial abnormality evident. by ct head Right frontal convexity scalp hematoma. DNR STATUS PLAN ADMIT O2 support pulm consult dvt prophylaxis home meds neurology consult ECHO Justifications for Admission Other Justification TERA SERRANO MD Mar 28, 2021 10:52
[2021-03-28 11:00] VITALS: BP 175/87
[2021-03-28] MEDS: IPRATROPIUM/ALBUTEROL 20/100mcg/INH INHALER. INH SCH ×3 (12:56→20:00)
[2021-03-28] MEDS: NICOTINE 21MG PATCH. TD SCH (12:57)
[2021-03-28] MEDS: AA 4.25 %/CALCIUM/LYTES/D5W 1,000 ML IV SCH (12:57)
[2021-03-28] MEDS: DEXAMETHASONE SOD PHOS 4 MG/ML VIAL IVP SCH (12:58)
[2021-03-28] MEDS ORDERED: diphenhydrAMINE 50 MG/ML VIAL IVP PRN (14:30)
[2021-03-28] MEDS ORDERED: DOCUSATE SODIUM 100 MG CAPSULE. PO PRN (14:30)
[2021-03-28] MEDS ORDERED: ACETAMINOPHEN 325 MG TABLET. PO PRN (14:30)
[2021-03-28] MEDS ORDERED: ONDANSETRON PF 4 MG/2 ML VIAL. IV PRN (14:30)
[2021-03-28] MEDS ORDERED: 0.9 % SODIUM CHLORIDE 10 ML DISP.SYRIN. IV PRN (14:30)
[2021-03-28] MEDS ORDERED: guaiFENesin ORAL 200 MG/10 ML LIQUID. PO PRN (14:30)
[2021-03-28] MEDS ORDERED: MAG HYDROX/ALUMINUM HYD/SIMETH 30 ML ORAL.SUSP PO PRN (14:30)
[2021-03-28] MEDS ORDERED: IPRATRPIUM/ALBUTEROL 0.5/2.5MG 3 ML NEBU. NEB SCH (14:30)
--- NOTE | 2021-03-28 14:58 | EKG ---
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
[2021-03-28 15:00] VITALS: BP 162/80
[2021-03-28] MEDS ORDERED: POTASSIUM CHLORIDE 20 MEQ TABLET.ER. PO ONE (15:00)
[2021-03-28] MEDS ORDERED: ENOXAPARIN 40 MG/0.4 ML SYRINGE. SQ SCH (16:00)
[2021-03-28] MEDS ORDERED: MORPHINE SULFATE 4 MG/ML INJ. IV PRN (16:00)
[2021-03-28] MEDS: IV NORMAL SALINE 1000ML BAG 1,000 ML IV SCH (16:07)
[2021-03-28] MEDS: PIPERACILLIN/TAZOBACTAM 3.375 GM in IV NORMAL SALINE 50ML 50 ML IV SCH (18:00)
[2021-03-28] MEDS: HEPARIN 25,000UTS/250ML PREMIX 250 ML IV PRN (18:29)
[2021-03-28] MEDS ORDERED: HEPARIN for IV BOLUS 10,000 UNIT/10 ML VIAL. IV PRN (18:30)
[2021-03-28 19:00] VITALS: BP 157/77
[2021-03-28] MEDS: LACTOBACILLUS RHAMNOSUS GG 1 CAPSULE. PO SCH (20:39)
[2021-03-28] MEDS: MORPHINE SULFATE 2 MG/ML INJ. IVP PRN (20:40)
[2021-03-28 23:00] VITALS: BP 151/66
[2021-03-29] MEDS: PIPERACILLIN/TAZOBACTAM 3.375 GM in IV NORMAL SALINE 50ML 50 ML IV SCH ×5 (00:34→23:50)
[2021-03-29] MEDS: MORPHINE SULFATE 2 MG/ML INJ. IVP PRN ×10 (00:40→23:52)
[2021-03-29] MEDS: AA 4.25 %/CALCIUM/LYTES/D5W 1,000 ML IV SCH ×3 (02:47→23:51)
[2021-03-29 03:34] VITALS: BP 154/73
[2021-03-29] MEDS: IV NORMAL SALINE 1000ML BAG 1,000 ML IV SCH (05:54)
[2021-03-29 06:50] LABS: BASO % 0 % (0-3); EOS % 0 % (0-3); HEMATOCRIT 39.5 % (36.0-47.0); HEMOGLOBIN 14.1 g/dL (12.0-15.5); LYMPH # 0.2 x10^3/uL (1.0-4.8); LYMPH % 2 % (24-48); MEAN CORPUSCULAR HEMOGLOBIN 33 pg (25-35); MEAN CORPUSCULAR HGB CONC 36 g/dL (31-37); MEAN CORPUSCULAR VOLUME 93 fL (79-100); MONO # 0.4 x10^3/uL (0.0-1.1); MONO % 4 % (0-9); NEUT # 11.2 x10^3/uL (1.8-7.7); NEUT % 95 % (31-73); PLATELET COUNT 161 x10^3/uL (140-400); RED BLOOD COUNT 4.25 x10^6/uL (3.50-5.40); RED CELL DISTRIBUTION WIDTH 13.3 % (11.5-14.5); WHITE BLOOD COUNT 11.8 x10^3/uL (4.0-11.0)
[2021-03-29 07:00] VITALS: BP 168/89
[2021-03-29 07:42] LABS: ALBUMIN 2.6 g/dL (3.4-5.0); ALBUMIN/GLOBULIN RATIO 0.8 (1.0-1.7); CALCIUM 8.3 mg/dL (8.5-10.1); GFR 53.5; POTASSIUM 3.2 mmol/L (3.5-5.1); TOTAL BILIRUBIN 0.7 mg/dL (0.2-1.0)
[2021-03-29] MEDS: IPRATROPIUM/ALBUTEROL 20/100mcg/INH INHALER. INH SCH ×4 (08:19→20:00)
[2021-03-29] MEDS: POTASSIUM CHLORIDE 20 MEQ TABLET.ER. PO SCH (08:19)
[2021-03-29] MEDS: LACTOBACILLUS RHAMNOSUS GG 1 CAPSULE. PO SCH ×2 (08:19→20:16)
[2021-03-29] MEDS: DEXAMETHASONE SOD PHOS 4 MG/ML VIAL IVP SCH (08:19)
[2021-03-29] MEDS: NICOTINE 21MG PATCH. TD SCH (08:20)
[2021-03-29] MEDS: HEPARIN 25,000UTS/250ML PREMIX 250 ML IV PRN (09:53)
[2021-03-29 11:00] VITALS: BP 166/86
--- NOTE | 2021-03-29 12:21 | PDOC2 ---
CONSULT Date of Consult Date of Consult DATE: 03/29/21 TIME: 12:21 Reason for Consult Reason for Consult: Non-STEMI Referring Physician Referring Physician: Dr. Torres Identification/Chief Complaint Chief Complaint Shortness of breath Source Source: Chart review, Patient History of Present Illness Reason for Visit: 80-year-old female with history of COPD presented with 2-week history of generalized weakness, shortness of breath, diarrhea and was found to have acute hypoxic respiratory failure secondary to Covid pneumonia. Cardiology has been consulted for elevated troponin level. Patient apparently had a fall last night but denied any syncope. She is not a very good historian but denied any chest pain as such. Past Medical History Cardiovascular: HTN Pulmonary: COPD Psych: Anxiety Musculoskeletal: Osteoarthritis Family History Family History: Heart Disease, High Cholestrol, Hypertension Social History <1 pack per day ALCOHOL: rare Drugs: None Current Problem List Problem List Problems Medical Problems: (1) Diarrhea Status: Acute (2) Hypertension Status: Acute (3) Hypokalemia Status: Acute (4) Hyponatremia Status: Acute (5) Hypoxia Status: Acute (6) Respiratory failure Status: Acute (7) Suspected 2019 novel coronavirus infection Status: Acute Current Medications Current Medications Current Medications Sodium Chloride 1,000 ml @ 1,000 mls/hr 1X ONCE IV Last administered on 03/28/21at 01:51; Start 03/28/21 at 01:00; Stop 03/28/21 at 01:59; Status DC Labetalol HCl (Normodyne Iv Push) 10 mg 1X ONCE IVP Last administered on 03/28/21at 01:52; Start 03/28/21 at 01:15; Stop 03/28/21 at 01:49; Status DC Ondansetron HCl (Zofran) 4 mg PRN Q8HRS PRN IVP NAUSEA/VOMITING; Start 03/28/21 at 02:30; Stop 03/28/21 at 14:39; Status DC Iohexol (Omnipaque 350 Mg/ml) 100 ml 1X ONCE IV ; Start 03/28/21 at 02:45; Stop 03/28/21 at 02:49; Status DC Info (CONTRAST GIVEN -- Rx MONITORING) 1 each PRN DAILY PRN MC SEE COMMENTS; Start 03/28/21 at 03:00; Stop 03/30/21 at 02:59 Labetalol HCl (Normodyne Iv Push) 10 mg PRN Q2HR PRN IVP HYPERTENSION; Start 03/28/21 at 03:30; Stop 03/29/21 at 03:29; Status DC Potassium Chloride (Klor-Con) 40 meq 1X ONCE PO Last administered on 03/28/21at 04:37; Start 03/28/21 at 04:30; Stop 03/28/21 at 04:31; Status DC Dexamethasone Sodium Phosphate (Decadron) 6 mg DAILY IVP Last administered on 03/29/21at 08:19; Start 03/28/21 at 13:00 Nicotine (Nicoderm Cq 21mg) 1 patch DAILY TD Last administered on 03/29/21at 08:20; Start 03/28/21 at 13:00 Amino Acids/ Electrolytes/ Dextrose 1,000 ml @ 80 mls/hr [id number] IV Last administered on 03/29/21at 11:47; Start 03/28/21 at 12:15 Albuterol/ Ipratropium (Combivent Respimat 20-100 Mcg) 1 puff RTQID INH Last administered on 03/29/21at 08:19; Start 03/28/21 at 13:00 Sodium Chloride (Normal Saline Flush) 3 ml QSHIFT PRN IV AFTER MEDS AND BLOOD DRAWS; Start 03/28/21 at 14:30 Sodium Chloride 1,000 ml @ 65 mls/hr [id number] IV Last administered on 03/28/21at 16:07; Start 03/28/21 at 14:30; Stop 03/29/21 at 12:08; Status DC Ondansetron HCl (Zofran) 4 mg PRN Q4HRS PRN IV NAUSEA/VOMITING; Start 03/28/21 at 14:30 Acetaminophen (Tylenol) 650 mg PRN Q4HRS PRN PO TEMP OVER 100.4F OR MILD PAIN; Start 03/28/21 at 14:30 Al Hydroxide/Mg Hydroxide (Mylanta Plus Xs) 30 ml PRN DAILY PRN PO HEARTBURN / GAS; Start 03/28/21 at 14:30 Diphenhydramine HCl (Benadryl) 25 mg PRN Q4HRS PRN IVP ITCHING; Start 03/28/21 at 14:30 Docusate Sodium (Colace) 100 mg PRN BID PRN PO HARD STOOLS; Start 03/28/21 at 14:30 Albuterol/ Ipratropium (Duoneb) 3 ml Q4H NEB ; Start 03/28/21 at 14:30; Status UNV Guaifenesin (Robitussin) 200 mg PRN Q4HRS PRN PO COUGH; Start 03/28/21 at 14:30 Enoxaparin Sodium (Lovenox 40mg Syringe) 40 mg Q24H SQ Last administered on 03/28/21at 16:09; Start 03/28/21 at 16:00; Stop 03/28/21 at 18:06; Status DC Piperacillin Sod/ Tazobactam Sod 3.375 gm/Sodium Chloride 50 ml @ 100 mls/hr Q6HRS IV Last administered on 03/29/21at 11:47; Start 03/28/21 at 18:00 Potassium Chloride (Klor-Con) 20 meq 1X ONCE PO Last administered on 03/28/21at 16:06; Start 03/28/21 at 15:00; Stop 03/28/21 at 15:01; Status DC Potassium Chloride (Klor-Con) 20 meq [id number] PO Last administered on at 08:19; Start 03/29/21 at 08:00 Lactobacillus Rhamnosus (Culturelle) 1 cap BID PO Last administered on 03/29/21at 08:19; Start 03/28/21 at 21:00 Morphine Sulfate (Morphine Sulfate) 4 mg PRN Q4HRS PRN IV PAIN; Start 03/28/21 at 16:00; Stop 03/28/21 at 16:06; Status DC Morphine Sulfate (Morphine Sulfate) 2 mg PRN Q4HRS PRN IVP PAIN Last administered on 03/29/21at 09:25; Start 03/28/21 at 16:15; Stop 03/29/21 at 09:52; Status DC Heparin Sodium/ Dextrose 250 ml @ 0 mls/hr CONT PRN IV PER PROTOCOL Last administered on 03/28/21at 18:29; Start 03/28/21 at 18:30 Heparin Sodium (Porcine) (Heparin Sodium) 1,750 unit PRN Q6HRS PRN IV FOR UFH LEVEL LESS THAN 0.2; Start 03/28/21 at 18:30 Morphine Sulfate (Morphine Sulfate) 2 mg PRN Q1HR PRN IVP PAIN Last administered on 03/29/21at 11:47; Start 03/29/21 at 10:00 Allergies Allergies: Coded Allergies: No Known Drug Allergies (Unverified , 03/28/21) ROS Review of System Full review of systems cannot be obtained due to mental status changes Physical Exam General: mild distress HEENT: Atraumatic Lungs: Other (Bilateral scattered crepitations) Heart: Regular rate Abdomen: Soft Extremities: No edema Vitals VITALS Vital Signs Date Time Temp Pulse Resp B/P (MAP) Pulse Ox O2 Delivery O2 Flow Rate FiO2 03/29/21 11:47 20 100 Venturi Mask 15.0 03/29/21 11:00 100.0 86 166/86 (112) 100.0 Labs Labs Laboratory Tests Test 03/28/21 00:57 03/28/21 01:00 03/28/21 01:11 03/28/21 01:23 White Blood Count 10.0 x10^3/uL (4.0-11.0) Red Blood Count 4.57 x10^6/uL (3.50-5.40) Hemoglobin 15.1 g/dL (12.0-15.5) Hematocrit 42.0 % (36.0-47.0) Mean Corpuscular Volume 92 fL (79-100) Mean Corpuscular Hemoglobin 33 pg (25-35) Mean Corpuscular Hemoglobin Concent 36 g/dL (31-37) Red Cell Distribution Width 13.1 % (11.5-14.5) Platelet Count 184 x10^3/uL (140-400) Neutrophils (%) (Auto) 93 % (31-73) Lymphocytes (%) (Auto) 2 % (24-48) Monocytes (%) (Auto) 5 % (0-9) Eosinophils (%) (Auto) 0 % (0-3) Basophils (%) (Auto) 0 % (0-3) Neutrophils # (Auto) 9.3 x10^3/uL (1.8-7.7) Lymphocytes # (Auto) 0.2 x10^3/uL (1.0-4.8) Monocytes # (Auto) 0.5 x10^3/uL (0.0-1.1) Eosinophils # (Auto) 0.0 x10^3/uL (0.0-0.7) Basophils # (Auto) 0.0 x10^3/uL (0.0-0.2) Segmented Neutrophils % 89 % (35-66) Band Neutrophils % 1 % (0-9) Lymphocytes % 4 % (24-48) Monocytes % 6 % (0-10) Platelet Estimate Adequate (ADEQUATE) Lactic Acid Level 1.8 mmol/L (0.4-2.0) Influenza Type A Antigen Negative (NEGATIVE) Influenza Type B Antigen Negative (NEGATIVE) SARS-CoV-2 RNA (PASCUAL) Positive (Negative) SARS-CoV-2 Antigen (Rapid) Negative (NEGATIVE) Urine Collection Type U cath Urine Color Yellow Urine Clarity Cloudy Urine pH 6.0 (<5.0-8.0) Urine Specific [place] >=1.030 (1.000-1.030) Urine Protein >=300 mg/dL (NEG-TRACE) Urine Glucose (UA) Negative mg/dL (NEG) Urine Ketones (Stick) 40 mg/dL (NEG) Urine Blood Large (NEG) Urine Nitrite Negative (NEG) Urine Bilirubin Negative (NEG) Urine Urobilinogen Dipstick 1.0 mg/dL (0.2 mg/dL) Urine Leukocyte Esterase Negative (NEG) Urine RBC 11-20 /HPF (0-2) Urine WBC 5-10 /HPF (0-4) Urine Squamous Epithelial Cells Few /LPF Urine Amorphous Sediment Present /HPF Urine Bacteria Few /HPF (0-FEW) Urine Mucus Marked /LPF Sodium Level 126 mmol/L (136-145) Potassium Level 3.0 mmol/L (3.5-5.1) Chloride Level 90 mmol/L (98-107) Carbon Dioxide Level 27 mmol/L (21-32) Anion Gap 9 (6-14) Blood Urea Nitrogen 13 mg/dL (7-20) Creatinine 0.9 mg/dL (0.6-1.0) Estimated GFR (Cockcroft-Gault) 60.4 BUN/Creatinine Ratio 14 (6-20) Glucose Level 145 mg/dL (70-99) Calcium Level 7.7 mg/dL (8.5-10.1) Magnesium Level 1.9 mg/dL (1.8-2.4) Total Bilirubin 0.6 mg/dL (0.2-1.0) Aspartate Amino Transf (AST/SGOT) 56 U/L (15-37) Alanine Aminotransferase (ALT/SGPT) 42 U/L (14-59) Alkaline Phosphatase 95 U/L (46-116) Creatine Kinase 507 U/L (26-192) Creatine Kinase MB (Mass) 4.0 ng/mL (0.0-3.6) Creatine Kinase MB Relative Index 0.8 % (0-4) Troponin I Quantitative 0.044 ng/mL (0.000-0.055) DE-Kku-R-Type Natriuretic Peptide 462 pg/mL (0-449) Total Protein 6.0 g/dL (6.4-8.2) Albumin 3.1 g/dL (3.4-5.0) Albumin/Globulin Ratio 1.1 (1.0-1.7) Test 03/28/21 15:45 03/28/21 20:25 03/29/21 01:38 03/29/21 05:25 Troponin I Quantitative 2.912 ng/mL (0.000-0.055) 3.567 ng/mL (0.000-0.055) Heparin Anti-Xa Act, Unfractionated 0.66 IU/mL (0.30-0.70) White Blood Count 11.8 x10^3/uL (4.0-11.0) Red Blood Count 4.25 x10^6/uL (3.50-5.40) Hemoglobin 14.1 g/dL (12.0-15.5) Hematocrit 39.5 % (36.0-47.0) Mean Corpuscular Volume 93 fL (79-100) Mean Corpuscular Hemoglobin 33 pg (25-35) Mean Corpuscular Hemoglobin Concent 36 g/dL (31-37) Red Cell Distribution Width 13.3 % (11.5-14.5) Platelet Count 161 x10^3/uL (140-400) Neutrophils (%) (Auto) 95 % (31-73) Lymphocytes (%) (Auto) 2 % (24-48) Monocytes (%) (Auto) 4 % (0-9) Eosinophils (%) (Auto) 0 % (0-3) Basophils (%) (Auto) 0 % (0-3) Neutrophils # (Auto) 11.2 x10^3/uL (1.8-7.7) Lymphocytes # (Auto) 0.2 x10^3/uL (1.0-4.8) Monocytes # (Auto) 0.4 x10^3/uL (0.0-1.1) Eosinophils # (Auto) 0.0 x10^3/uL (0.0-0.7) Basophils # (Auto) 0.0 x10^3/uL (0.0-0.2) Sodium Level 128 mmol/L (136-145) Potassium Level 3.2 mmol/L (3.5-5.1) Chloride Level 91 mmol/L (98-107) Carbon Dioxide Level 32 mmol/L (21-32) Anion Gap 5 (6-14) Blood Urea Nitrogen 15 mg/dL (7-20) Creatinine 1.0 mg/dL (0.6-1.0) Estimated GFR (Cockcroft-Gault) 53.5 BUN/Creatinine Ratio 15 (6-20) Glucose Level 136 mg/dL (70-99) Calcium Level 8.3 mg/dL (8.5-10.1) Total Bilirubin 0.7 mg/dL (0.2-1.0) Aspartate Amino Transf (AST/SGOT) 49 U/L (15-37) Alanine Aminotransferase (ALT/SGPT) 46 U/L (14-59) Alkaline Phosphatase 83 U/L (46-116) Total Protein 6.0 g/dL (6.4-8.2) Albumin 2.6 g/dL (3.4-5.0) Albumin/Globulin Ratio 0.8 (1.0-1.7) Test 03/29/21 06:53 03/29/21 08:00 03/29/21 11:39 Glucose (Fingerstick) 105 mg/dL (70-99) 165 mg/dL (70-99) Heparin Anti-Xa Act, Unfractionated 0.23 IU/mL (0.30-0.70) Troponin I Quantitative 2.600 ng/mL (0.000-0.055) Laboratory Tests Test 03/28/21 15:45 03/28/21 20:25 03/29/21 01:38 03/29/21 05:25 Troponin I Quantitative 2.912 ng/mL (0.000-0.055) 3.567 ng/mL (0.000-0.055) Heparin Anti-Xa Act, Unfractionated 0.66 IU/mL (0.30-0.70) White Blood Count 11.8 x10^3/uL (4.0-11.0) Red Blood Count 4.25 x10^6/uL (3.50-5.40) Hemoglobin 14.1 g/dL (12.0-15.5) Hematocrit 39.5 % (36.0-47.0) Mean Corpuscular Volume 93 fL (79-100) Mean Corpuscular Hemoglobin 33 pg (25-35) Mean Corpuscular Hemoglobin Concent 36 g/dL (31-37) Red Cell Distribution Width 13.3 % (11.5-14.5) Platelet Count 161 x10^3/uL (140-400) Neutrophils (%) (Auto) 95 % (31-73) Lymphocytes (%) (Auto) 2 % (24-48) Monocytes (%) (Auto) 4 % (0-9) Eosinophils (%) (Auto) 0 % (0-3) Basophils (%) (Auto) 0 % (0-3) Neutrophils # (Auto) 11.2 x10^3/uL (1.8-7.7) Lymphocytes # (Auto) 0.2 x10^3/uL (1.0-4.8) Monocytes # (Auto) 0.4 x10^3/uL (0.0-1.1) Eosinophils # (Auto) 0.0 x10^3/uL (0.0-0.7) Basophils # (Auto) 0.0 x10^3/uL (0.0-0.2) Sodium Level 128 mmol/L (136-145) Potassium Level 3.2 mmol/L (3.5-5.1) Chloride Level 91 mmol/L (98-107) Carbon Dioxide Level 32 mmol/L (21-32) Anion Gap 5 (6-14) Blood Urea Nitrogen 15 mg/dL (7-20) Creatinine 1.0 mg/dL (0.6-1.0) Estimated GFR (Cockcroft-Gault) 53.5 BUN/Creatinine Ratio 15 (6-20) Glucose Level 136 mg/dL (70-99) Calcium Level 8.3 mg/dL (8.5-10.1) Total Bilirubin 0.7 mg/dL (0.2-1.0) Aspartate Amino Transf (AST/SGOT) 49 U/L (15-37) Alanine Aminotransferase (ALT/SGPT) 46 U/L (14-59) Alkaline Phosphatase 83 U/L (46-116) Total Protein 6.0 g/dL (6.4-8.2) Albumin 2.6 g/dL (3.4-5.0) Albumin/Globulin Ratio 0.8 (1.0-1.7) Test 03/29/21 06:53 03/29/21 08:00 03/29/21 11:39 Glucose (Fingerstick) 105 mg/dL (70-99) 165 mg/dL (70-99) Heparin Anti-Xa Act, Unfractionated 0.23 IU/mL (0.30-0.70) Troponin I Quantitative 2.600 ng/mL (0.000-0.055) Assessment/Plan Assessment/Plan 1. Acute hypoxic respiratory failure secondary to Covid pneumonia. Remdesivir initiated today. Pulmonary team following. 2. Non-STEMI, could be type II/demand ischemia but cannot rule out CAD due to her multiple cardiovascular factors. Presently on heparin infusion per protocol. Patient is DNR and family considering hospice. Continue conservative management for now. 3. Hypokalemia, hyponatremia: Treat per IM Thank you for your consultation AMANDA ROSAS MD Mar 29, 2021 12:21
--- NOTE | 2021-03-29 12:48 | PDOC ---
PULMONARY PROGRESS NOTES DATE: 03/29/21 TIME: 12:47 Vitals Vital Signs Date Time Temp Pulse Resp B/P (MAP) Pulse Ox O2 Delivery O2 Flow Rate FiO2 03/29/21 11:47 20 100 Venturi Mask 15.0 03/29/21 11:00 100.0 86 166/86 (112) 100.0 Labs Laboratory Tests Test 03/28/21 00:57 03/28/21 01:00 03/28/21 01:11 03/28/21 01:23 White Blood Count 10.0 x10^3/uL (4.0-11.0) Red Blood Count 4.57 x10^6/uL (3.50-5.40) Hemoglobin 15.1 g/dL (12.0-15.5) Hematocrit 42.0 % (36.0-47.0) Mean Corpuscular Volume 92 fL (79-100) Mean Corpuscular Hemoglobin 33 pg (25-35) Mean Corpuscular Hemoglobin Concent 36 g/dL (31-37) Red Cell Distribution Width 13.1 % (11.5-14.5) Platelet Count 184 x10^3/uL (140-400) Neutrophils (%) (Auto) 93 % (31-73) Lymphocytes (%) (Auto) 2 % (24-48) Monocytes (%) (Auto) 5 % (0-9) Eosinophils (%) (Auto) 0 % (0-3) Basophils (%) (Auto) 0 % (0-3) Neutrophils # (Auto) 9.3 x10^3/uL (1.8-7.7) Lymphocytes # (Auto) 0.2 x10^3/uL (1.0-4.8) Monocytes # (Auto) 0.5 x10^3/uL (0.0-1.1) Eosinophils # (Auto) 0.0 x10^3/uL (0.0-0.7) Basophils # (Auto) 0.0 x10^3/uL (0.0-0.2) Segmented Neutrophils % 89 % (35-66) Band Neutrophils % 1 % (0-9) Lymphocytes % 4 % (24-48) Monocytes % 6 % (0-10) Platelet Estimate Adequate (ADEQUATE) Lactic Acid Level 1.8 mmol/L (0.4-2.0) Influenza Type A Antigen Negative (NEGATIVE) Influenza Type B Antigen Negative (NEGATIVE) SARS-CoV-2 RNA (PASCUAL) Positive (Negative) SARS-CoV-2 Antigen (Rapid) Negative (NEGATIVE) Urine Collection Type U cath Urine Color Yellow Urine Clarity Cloudy Urine pH 6.0 (<5.0-8.0) Urine Specific [place] >=1.030 (1.000-1.030) Urine Protein >=300 mg/dL (NEG-TRACE) Urine Glucose (UA) Negative mg/dL (NEG) Urine Ketones (Stick) 40 mg/dL (NEG) Urine Blood Large (NEG) Urine Nitrite Negative (NEG) Urine Bilirubin Negative (NEG) Urine Urobilinogen Dipstick 1.0 mg/dL (0.2 mg/dL) Urine Leukocyte Esterase Negative (NEG) Urine RBC 11-20 /HPF (0-2) Urine WBC 5-10 /HPF (0-4) Urine Squamous Epithelial Cells Few /LPF Urine Amorphous Sediment Present /HPF Urine Bacteria Few /HPF (0-FEW) Urine Mucus Marked /LPF Sodium Level 126 mmol/L (136-145) Potassium Level 3.0 mmol/L (3.5-5.1) Chloride Level 90 mmol/L (98-107) Carbon Dioxide Level 27 mmol/L (21-32) Anion Gap 9 (6-14) Blood Urea Nitrogen 13 mg/dL (7-20) Creatinine 0.9 mg/dL (0.6-1.0) Estimated GFR (Cockcroft-Gault) 60.4 BUN/Creatinine Ratio 14 (6-20) Glucose Level 145 mg/dL (70-99) Calcium Level 7.7 mg/dL (8.5-10.1) Magnesium Level 1.9 mg/dL (1.8-2.4) Total Bilirubin 0.6 mg/dL (0.2-1.0) Aspartate Amino Transf (AST/SGOT) 56 U/L (15-37) Alanine Aminotransferase (ALT/SGPT) 42 U/L (14-59) Alkaline Phosphatase 95 U/L (46-116) Creatine Kinase 507 U/L (26-192) Creatine Kinase MB (Mass) 4.0 ng/mL (0.0-3.6) Creatine Kinase MB Relative Index 0.8 % (0-4) Troponin I Quantitative 0.044 ng/mL (0.000-0.055) RH-Vjb-R-Type Natriuretic Peptide 462 pg/mL (0-449) Total Protein 6.0 g/dL (6.4-8.2) Albumin 3.1 g/dL (3.4-5.0) Albumin/Globulin Ratio 1.1 (1.0-1.7) Test 03/28/21 15:45 03/28/21 20:25 03/29/21 01:38 03/29/21 05:25 Troponin I Quantitative 2.912 ng/mL (0.000-0.055) 3.567 ng/mL (0.000-0.055) Heparin Anti-Xa Act, Unfractionated 0.66 IU/mL (0.30-0.70) White Blood Count 11.8 x10^3/uL (4.0-11.0) Red Blood Count 4.25 x10^6/uL (3.50-5.40) Hemoglobin 14.1 g/dL (12.0-15.5) Hematocrit 39.5 % (36.0-47.0) Mean Corpuscular Volume 93 fL (79-100) Mean Corpuscular Hemoglobin 33 pg (25-35) Mean Corpuscular Hemoglobin Concent 36 g/dL (31-37) Red Cell Distribution Width 13.3 % (11.5-14.5) Platelet Count 161 x10^3/uL (140-400) Neutrophils (%) (Auto) 95 % (31-73) Lymphocytes (%) (Auto) 2 % (24-48) Monocytes (%) (Auto) 4 % (0-9) Eosinophils (%) (Auto) 0 % (0-3) Basophils (%) (Auto) 0 % (0-3) Neutrophils # (Auto) 11.2 x10^3/uL (1.8-7.7) Lymphocytes # (Auto) 0.2 x10^3/uL (1.0-4.8) Monocytes # (Auto) 0.4 x10^3/uL (0.0-1.1) Eosinophils # (Auto) 0.0 x10^3/uL (0.0-0.7) Basophils # (Auto) 0.0 x10^3/uL (0.0-0.2) Sodium Level 128 mmol/L (136-145) Potassium Level 3.2 mmol/L (3.5-5.1) Chloride Level 91 mmol/L (98-107) Carbon Dioxide Level 32 mmol/L (21-32) Anion Gap 5 (6-14) Blood Urea Nitrogen 15 mg/dL (7-20) Creatinine 1.0 mg/dL (0.6-1.0) Estimated GFR (Cockcroft-Gault) 53.5 BUN/Creatinine Ratio 15 (6-20) Glucose Level 136 mg/dL (70-99) Calcium Level 8.3 mg/dL (8.5-10.1) Total Bilirubin 0.7 mg/dL (0.2-1.0) Aspartate Amino Transf (AST/SGOT) 49 U/L (15-37) Alanine Aminotransferase (ALT/SGPT) 46 U/L (14-59) Alkaline Phosphatase 83 U/L (46-116) Total Protein 6.0 g/dL (6.4-8.2) Albumin 2.6 g/dL (3.4-5.0) Albumin/Globulin Ratio 0.8 (1.0-1.7) Test 03/29/21 06:53 03/29/21 08:00 03/29/21 11:39 Glucose (Fingerstick) 105 mg/dL (70-99) 165 mg/dL (70-99) Heparin Anti-Xa Act, Unfractionated 0.23 IU/mL (0.30-0.70) Troponin I Quantitative 2.600 ng/mL (0.000-0.055) Laboratory Tests Test 03/28/21 15:45 03/28/21 20:25 03/29/21 01:38 03/29/21 05:25 Troponin I Quantitative 2.912 ng/mL (0.000-0.055) 3.567 ng/mL (0.000-0.055) Heparin Anti-Xa Act, Unfractionated 0.66 IU/mL (0.30-0.70) White Blood Count 11.8 x10^3/uL (4.0-11.0) Red Blood Count 4.25 x10^6/uL (3.50-5.40) Hemoglobin 14.1 g/dL (12.0-15.5) Hematocrit 39.5 % (36.0-47.0) Mean Corpuscular Volume 93 fL (79-100) Mean Corpuscular Hemoglobin 33 pg (25-35) Mean Corpuscular Hemoglobin Concent 36 g/dL (31-37) Red Cell Distribution Width 13.3 % (11.5-14.5) Platelet Count 161 x10^3/uL (140-400) Neutrophils (%) (Auto) 95 % (31-73) Lymphocytes (%) (Auto) 2 % (24-48) Monocytes (%) (Auto) 4 % (0-9) Eosinophils (%) (Auto) 0 % (0-3) Basophils (%) (Auto) 0 % (0-3) Neutrophils # (Auto) 11.2 x10^3/uL (1.8-7.7) Lymphocytes # (Auto) 0.2 x10^3/uL (1.0-4.8) Monocytes # (Auto) 0.4 x10^3/uL (0.0-1.1) Eosinophils # (Auto) 0.0 x10^3/uL (0.0-0.7) Basophils # (Auto) 0.0 x10^3/uL (0.0-0.2) Sodium Level 128 mmol/L (136-145) Potassium Level 3.2 mmol/L (3.5-5.1) Chloride Level 91 mmol/L (98-107) Carbon Dioxide Level 32 mmol/L (21-32) Anion Gap 5 (6-14) Blood Urea Nitrogen 15 mg/dL (7-20) Creatinine 1.0 mg/dL (0.6-1.0) Estimated GFR (Cockcroft-Gault) 53.5 BUN/Creatinine Ratio 15 (6-20) Glucose Level 136 mg/dL (70-99) Calcium Level 8.3 mg/dL (8.5-10.1) Total Bilirubin 0.7 mg/dL (0.2-1.0) Aspartate Amino Transf (AST/SGOT) 49 U/L (15-37) Alanine Aminotransferase (ALT/SGPT) 46 U/L (14-59) Alkaline Phosphatase 83 U/L (46-116) Total Protein 6.0 g/dL (6.4-8.2) Albumin 2.6 g/dL (3.4-5.0) Albumin/Globulin Ratio 0.8 (1.0-1.7) Test 03/29/21 06:53 03/29/21 08:00 03/29/21 11:39 Glucose (Fingerstick) 105 mg/dL (70-99) 165 mg/dL (70-99) Heparin Anti-Xa Act, Unfractionated 0.23 IU/mL (0.30-0.70) Troponin I Quantitative 2.600 ng/mL (0.000-0.055) Impression . FULL NOTE DICTATED WILL ADD REMDISIVIR SEE ORDERS D/C HEP JOELLE FIGUEREDO MD Mar 29, 2021 12:48
--- NOTE | 2021-03-29 13:43 | CONS ---
DATE OF CONSULTATION: 03/29/2021 ATTENDING PHYSICIAN: Sonali Erickson MD REASON FOR CONSULTATION: The patient is seen in pulmonary consultation at the request of Dr. Erickson for SARS-CoV-2 positive acute hypoxemic respiratory failure. HISTORY OF PRESENT ILLNESS: The patient is a 80-year-old that I am unable to obtain any history from the patient herself. I reviewed the Emergency Department records. She presented with 2-week history of generalized malaise, shortness of breath and diarrhea. She has a history of COPD, smokes approximately 3 days a week. Denied any COVID-19 exposures. The patient reports that she has not been vaccinated for COVID-19. EMS found the patient to have O2 saturation on room air of 88%. She was placed on oxygen supplementation. Apparently, the patient does not wear oxygen at home. I was asked to see her in consultation. Reviewed CT chest, which revealed no evidence of pulmonary emboli. There was diffuse emphysematous changes and interstitial fibrosis, interstitial lung disease. She has a history of COPD, respiratory distress, tobacco dependent, no cardiac disorders. No GI disorders. PAST MEDICAL HISTORY: Otherwise, obtained from the current medical records. She has not had any prior admissions. REVIEW OF SYSTEMS: Unobtainable secondary to patient's condition. PHYSICAL EXAMINATION: GENERAL: The patient was currently on 15 liters nonrebreather. Saturation greater than 92%. VITAL SIGNS: She had a T-max yesterday of 100. HEENT: Eyes: The sclerae were nonicteric. NECK: Jugular venous distention was not elevated. CHEST: Full expansion. LUNGS: Crackles throughout both lung garcia. CARDIOVASCULAR: Regular rate and rhythm with S1, S2, no S3. ABDOMEN: Soft. EXTREMITIES: No clubbing, cyanosis or edema. LABORATORY DATA: Reviewed. White count was slightly elevated. Electrolytes were noted. Sodium was low. Albumin was low. SARS-CoV-2 nuclear amplification test was positive. CT and chest x-ray as indicated above. IMPRESSION: 1. Acute hypoxemic respiratory failure. 2. COVID-19 viral pneumonia, acute respiratory distress syndrome. 3. Possible bacterial pneumonia. 4. Acute exacerbation of chronic obstructive pulmonary disease. 5. Hyponatremia. 6. Severe protein malnutrition, present upon admission. 7. Tobacco dependent. PLAN: 1. I reviewed the current medications. The patient is currently on Zosyn, we will continue Zosyn. 2. Continue dexamethasone 6 mg daily. 3. We will initiate remdesivir. 4. Nebulized treatments. 5. P.r.n. morphine. 6. The patient noted to be do not resuscitate, do not intubate. I do appreciate the privilege in sharing in the patient's care. Total cumulative critical care time of 40 minutes, long-term prognosis is poor. The patient may not survive this admission. PEARL DR: Ap TID: [id number]
[2021-03-29] MEDS ORDERED: REMDESIVIR LOAD in IV NORMAL SALINE 250ML TV IV ONE (14:00)
[2021-03-29 15:00] VITALS: BP 179/85
--- NOTE | 2021-03-29 15:15 | PDOC ---
[facility] PROGRESS NOTE Date of Service DOS: DATE: 03/29/21 TIME: 15:10 Chief Complaint Chief Complaint Shortness of breath, weakness, falls History of Present Illness History of Present Illness 80-year-old female with past medical history of COPD continues to smoke 3 packs a day presented via EMS last night with 2-week history of generalized malaise, shortness of breath, and diarrhea. covid pos here Denies known exposure to COVID-19. she has not received the COVID-19 vaccinations. EMS reported upon their arrival patient was noted to have a O2 sat down to 80% on room air. EMS denies that patient wears oxygen at baseline. Patient reportedly has had decreased appetite and not feeling well for the past 10 to 14 days. Patient found to be hypoxic upon their arrival down to 80% on room air. Improved with supplemental O2. concern for possible Covid 19 infection. Rapid Covid negative. Covid PCR pos. EKG stable. Hyponatremia noted. Hypokalemia addressed. Patient with history of diarrhea. unwitnessed fall last night at approximately 2130 9-04 in her bedroom where she did strike the right side of her head 03/29 Patient required heparin drip overnight due to elevated troponins. These have since trended down. Patient evaluated at bedside she was nonrebreather when evaluated. She was in notable distress at rest with labored respirations. She was able to be calmed down somewhat however. Patient expressing she does not want to all of the interventions currently in place and wants to just be comfortable at home. Farzaneh urbano on face time in the room agreed that focusing on comfort is in the patient's best interest at this point. Patient and grandson would prefer home hospice. We will start working on establishing this now however may take 24 to 48 hours due to today being a holiday. We will continue current treatments while admitted however will forego any further diagnostic testing or blood work. Full transition to hospice/comfort care on discharge Vitals/I&O Vitals/I&O: Vital Signs Date Time Temp Pulse Resp B/P (MAP) Pulse Ox O2 Delivery O2 Flow Rate FiO2 03/29/21 14:53 28 100 Venturi Mask 15.0 03/29/21 11:00 100.0 86 166/86 (112) 100.0 I & O 03/28/21 03/28/21 03/29/21 15:00 23:00 07:00 Intake Total 150 ml 100 ml Output Total 100 ml Balance 150 ml 100 ml -100 ml Physical Exam General: Alert, Cooperative, severe distress Heart: Regular rate, Normal S1, Normal S2 Lungs: Other (Wheezing and labored) Abdomen: Soft Extremities: No edema, Normal pulses Skin: No rashes, No significant lesion Labs Labs: Laboratory Tests Test 03/28/21 15:45 03/28/21 20:25 03/29/21 01:38 03/29/21 05:25 Troponin I Quantitative 2.912 ng/mL (0.000-0.055) 3.567 ng/mL (0.000-0.055) Heparin Anti-Xa Act, Unfractionated 0.66 IU/mL (0.30-0.70) White Blood Count 11.8 x10^3/uL (4.0-11.0) Red Blood Count 4.25 x10^6/uL (3.50-5.40) Hemoglobin 14.1 g/dL (12.0-15.5) Hematocrit 39.5 % (36.0-47.0) Mean Corpuscular Volume 93 fL (79-100) Mean Corpuscular Hemoglobin 33 pg (25-35) Mean Corpuscular Hemoglobin Concent 36 g/dL (31-37) Red Cell Distribution Width 13.3 % (11.5-14.5) Platelet Count 161 x10^3/uL (140-400) Neutrophils (%) (Auto) 95 % (31-73) Lymphocytes (%) (Auto) 2 % (24-48) Monocytes (%) (Auto) 4 % (0-9) Eosinophils (%) (Auto) 0 % (0-3) Basophils (%) (Auto) 0 % (0-3) Neutrophils # (Auto) 11.2 x10^3/uL (1.8-7.7) Lymphocytes # (Auto) 0.2 x10^3/uL (1.0-4.8) Monocytes # (Auto) 0.4 x10^3/uL (0.0-1.1) Eosinophils # (Auto) 0.0 x10^3/uL (0.0-0.7) Basophils # (Auto) 0.0 x10^3/uL (0.0-0.2) Sodium Level 128 mmol/L (136-145) Potassium Level 3.2 mmol/L (3.5-5.1) Chloride Level 91 mmol/L (98-107) Carbon Dioxide Level 32 mmol/L (21-32) Anion Gap 5 (6-14) Blood Urea Nitrogen 15 mg/dL (7-20) Creatinine 1.0 mg/dL (0.6-1.0) Estimated GFR (Cockcroft-Gault) 53.5 BUN/Creatinine Ratio 15 (6-20) Glucose Level 136 mg/dL (70-99) Calcium Level 8.3 mg/dL (8.5-10.1) Total Bilirubin 0.7 mg/dL (0.2-1.0) Aspartate Amino Transf (AST/SGOT) 49 U/L (15-37) Alanine Aminotransferase (ALT/SGPT) 46 U/L (14-59) Alkaline Phosphatase 83 U/L (46-116) Total Protein 6.0 g/dL (6.4-8.2) Albumin 2.6 g/dL (3.4-5.0) Albumin/Globulin Ratio 0.8 (1.0-1.7) Test 03/29/21 06:53 03/29/21 08:00 03/29/21 11:39 Glucose (Fingerstick) 105 mg/dL (70-99) 165 mg/dL (70-99) Heparin Anti-Xa Act, Unfractionated 0.23 IU/mL (0.30-0.70) Troponin I Quantitative 2.600 ng/mL (0.000-0.055) Review of Systems Review of Systems: Could not obtain Assessment and Plan Assessmemt and Plan Problems Medical Problems: (1) Diarrhea Status: Acute (2) Hypertension Status: Acute (3) Hypokalemia Status: Acute (4) Hyponatremia Status: Acute (5) Hypoxia Status: Acute (6) Respiratory failure Status: Acute (7) Suspected 2019 novel coronavirus infection Status: Acute COVID 19 POS PNEUMONIA mild hyponatremia, hypokalemia Diffuse emphysematous changes bilaterally with some interstitial fibrosis. 5.5 mm cystic lesion in the tail the pancreas. Nodules in the adrenal glands bilaterally which may represent adenoma however adrenal metastases cannot be excluded. Recommend clinical correlation follow-up. Diverticulosis in the sigmoid colon without diverticulitis. Degenerative disc disease at the L5-S1 disc level. Cerebral atrophy with microvascular ischemic changes. Chronic lacunar infarcts in the right centrum semiovale and left basal ganglia. No acute intracranial abnormality evident. by ct head Right frontal convexity scalp hematoma. DNR STATUS PLAN ADMIT O2 support pulm consult dvt prophylaxis home meds Continue current treatments for now however patient will transition to home hospice on discharge. Comment Review of Relevant I have reviewed the following items dion (where applicable) has been applied. Medications: Current Medications Medications (Trade) Dose Ordered Sig/Montse Route PRN Reason Start Time Stop Time Status Last Admin Dose Admin Enoxaparin Sodium (Lovenox 40mg Syringe) 40 mg Q24H SQ 03/28/21 16:00 03/28/21 18:06 DC 03/28/21 16:09 Piperacillin Sod/ Tazobactam Sod 3.375 gm/Sodium Chloride 50 ml @ 100 mls/hr Q6HRS IV 03/28/21 18:00 03/29/21 11:47 Potassium Chloride (Klor-Con) 20 meq [id number] PO 03/29/21 08:00 03/29/21 08:19 Lactobacillus Rhamnosus (Culturelle) 1 cap BID PO 03/28/21 21:00 03/29/21 08:19 Morphine Sulfate (Morphine Sulfate) 2 mg PRN Q4HRS PRN IVP PAIN 03/28/21 16:15 03/29/21 09:52 DC 03/29/21 09:25 Heparin Sodium/ Dextrose 250 ml @ 0 mls/hr CONT PRN IV PER PROTOCOL 03/28/21 18:30 03/29/21 12:47 DC 03/28/21 18:29 Morphine Sulfate (Morphine Sulfate) 2 mg PRN Q1HR PRN IVP PAIN 03/29/21 10:00 03/29/21 14:53 Justifications for Admission Other Justification hypoxia, pneumonia KESHA CURRIE MD Mar 29, 2021 15:15
[2021-03-29 19:00] VITALS: BP 131/74
[2021-03-29 23:36] VITALS: BP 144/62
[2021-03-30] MEDS: MORPHINE SULFATE 2 MG/ML INJ. IVP PRN ×4 (02:20→13:30)
[2021-03-30 03:15] VITALS: BP 157/82
[2021-03-30] MEDS: PIPERACILLIN/TAZOBACTAM 3.375 GM in IV NORMAL SALINE 50ML 50 ML IV SCH ×2 (05:51→12:41)
[2021-03-30 07:00] VITALS: BP 157/83
[2021-03-30] MEDS ORDERED: PERFLUTREN PROTEIN-A MICROSPHR 0.22 MG/ML 3 ML VIAL. IV ONE (07:30)
[2021-03-30] MEDS: POTASSIUM CHLORIDE 20 MEQ TABLET.ER. PO SCH ×2 (08:00→10:06)
[2021-03-30] MEDS: IPRATROPIUM/ALBUTEROL 20/100mcg/INH INHALER. INH SCH ×3 (08:00→12:41)
--- NOTE | 2021-03-30 08:14 | SNU/HH DC ---
DISCHARGE ORDERS DISCHARGE INFORMATION: DISCHARGE DATE: Mar 30, 2021 FINAL DIAGNOSIS Problems Medical Problems: (1) Diarrhea Status: Acute (2) Hypertension Status: Acute (3) Hypokalemia Status: Acute (4) Hyponatremia Status: Acute (5) Hypoxia Status: Acute (6) Respiratory failure Status: Acute (7) Suspected 2019 novel coronavirus infection Status: Acute CONDITION ON DISCHARGE: Guarded CODE STATUS: Code Status: DNR/DNI HOSPICE: HOSPICE: Yes HOSPICE EVAL & TREAT: Yes POST DISCHARGE ORDERS: ACTIVITY ORDERS: Activity as tolerated WEIGHT BEARING STATUS: As tolerated DIET AFTER DISCHARGE: Regular TREATMENT/EQUIPMENT ORDERS: INFUSION EQUIPMENT NEEDED: IV Line RESPIRATORY EQUIPMENT NEEDED: Oxygen KESHA CURRIE MD Mar 30, 2021 08:14
--- NOTE | 2021-03-30 08:31 | PDOC ---
PULMONARY PROGRESS NOTES DATE: 03/30/21 TIME: 08:31 Subjective Patient more awake and alert, no respiratory distress Nurse reports she is refusing feeding Vitals Vital Signs Date Time Temp Pulse Resp B/P (MAP) Pulse Ox O2 Delivery O2 Flow Rate FiO2 03/30/21 03:15 98.2 98 22 157/82 (107) 99 Nasal Cannula 15.0 98.2 General: Alert Lungs: Crackles Cardiovascular: S1, S2 Abdomen: Soft Neuro Exam: Alert Extremities: No Edema Skin: Warm Labs Laboratory Tests Test 03/28/21 15:45 03/28/21 20:25 03/29/21 01:38 03/29/21 05:25 Troponin I Quantitative 2.912 ng/mL (0.000-0.055) 3.567 ng/mL (0.000-0.055) Heparin Anti-Xa Act, Unfractionated 0.66 IU/mL (0.30-0.70) White Blood Count 11.8 x10^3/uL (4.0-11.0) Red Blood Count 4.25 x10^6/uL (3.50-5.40) Hemoglobin 14.1 g/dL (12.0-15.5) Hematocrit 39.5 % (36.0-47.0) Mean Corpuscular Volume 93 fL (79-100) Mean Corpuscular Hemoglobin 33 pg (25-35) Mean Corpuscular Hemoglobin Concent 36 g/dL (31-37) Red Cell Distribution Width 13.3 % (11.5-14.5) Platelet Count 161 x10^3/uL (140-400) Neutrophils (%) (Auto) 95 % (31-73) Lymphocytes (%) (Auto) 2 % (24-48) Monocytes (%) (Auto) 4 % (0-9) Eosinophils (%) (Auto) 0 % (0-3) Basophils (%) (Auto) 0 % (0-3) Neutrophils # (Auto) 11.2 x10^3/uL (1.8-7.7) Lymphocytes # (Auto) 0.2 x10^3/uL (1.0-4.8) Monocytes # (Auto) 0.4 x10^3/uL (0.0-1.1) Eosinophils # (Auto) 0.0 x10^3/uL (0.0-0.7) Basophils # (Auto) 0.0 x10^3/uL (0.0-0.2) Sodium Level 128 mmol/L (136-145) Potassium Level 3.2 mmol/L (3.5-5.1) Chloride Level 91 mmol/L (98-107) Carbon Dioxide Level 32 mmol/L (21-32) Anion Gap 5 (6-14) Blood Urea Nitrogen 15 mg/dL (7-20) Creatinine 1.0 mg/dL (0.6-1.0) Estimated GFR (Cockcroft-Gault) 53.5 BUN/Creatinine Ratio 15 (6-20) Glucose Level 136 mg/dL (70-99) Calcium Level 8.3 mg/dL (8.5-10.1) Total Bilirubin 0.7 mg/dL (0.2-1.0) Aspartate Amino Transf (AST/SGOT) 49 U/L (15-37) Alanine Aminotransferase (ALT/SGPT) 46 U/L (14-59) Alkaline Phosphatase 83 U/L (46-116) Total Protein 6.0 g/dL (6.4-8.2) Albumin 2.6 g/dL (3.4-5.0) Albumin/Globulin Ratio 0.8 (1.0-1.7) Test 03/29/21 06:53 03/29/21 08:00 03/29/21 11:39 Glucose (Fingerstick) 105 mg/dL (70-99) 165 mg/dL (70-99) Heparin Anti-Xa Act, Unfractionated 0.23 IU/mL (0.30-0.70) Troponin I Quantitative 2.600 ng/mL (0.000-0.055) Laboratory Tests Test 03/29/21 11:39 Glucose (Fingerstick) 165 mg/dL (70-99) Impression . IMPRESSION: 1. Acute hypoxemic respiratory failure. 2. COVID-19 viral pneumonia, acute respiratory distress syndrome. 3. Possible bacterial pneumonia. 4. Acute exacerbation of chronic obstructive pulmonary disease. 5. Hyponatremia. 6. Severe protein malnutrition, present upon admission. 7. Tobacco dependent. Plan . Updated 03/30 I got a call from the nurse yesterday, family was considering hospice care as a consequence remdesivir was placed on hold We will continue oxygen supplementation and dexamethasone Long-term and short-term prognosis is poor I concur with the possibility of hospice Neurology has been consulted PLAN: 1. I reviewed the current medications. The patient is currently on Zosyn, we will continue Zosyn. 2. Continue dexamethasone 6 mg daily. 3. We will initiate remdesivir. 4. Nebulized treatments. 5. P.r.n. morphine. 6. The patient noted to be do not resuscitate, do not intubate. I do appreciate the privilege in sharing in the patient's care. Total cumulative critical care time of 40 minutes, long-term prognosis is poor. The patient may not survive this admission. JOELLE FIGUEREDO MD Mar 30, 2021 08:31
[2021-03-30] MEDS ORDERED: ENOXAPARIN 40 MG/0.4 ML SYRINGE. SQ SCH (09:00)
[2021-03-30] MEDS: LACTOBACILLUS RHAMNOSUS GG 1 CAPSULE. PO SCH ×2 (09:00→10:05)
--- NOTE | 2021-03-30 09:50 | PDOC ---
Provider Note Date of Service: DATE: 03/30/21 TIME: 09:50 Provider Note Neurology consult was cancelled Justifications for Admission Other Justification hypoxia, pneumonia MAVIS BENSON MD Mar 30, 2021 09:50
[2021-03-30] MEDS: NICOTINE 21MG PATCH. TD SCH (10:04)
[2021-03-30] MEDS: DEXAMETHASONE SOD PHOS 4 MG/ML VIAL IVP SCH (10:04)
[2021-03-30] MEDS ORDERED: ACETAMINOPHEN 650 MG SUPP.RECT. PR PRN (10:30)
[2021-03-30 11:00] VITALS: BP 157/80
--- NOTE | 2021-03-30 11:35 | NUR ---
Non administered patients PO meds and inhaler due to patient not being able to follow commands to sip on a straw or take a sip of fluids to get the pills down, patient unable to follow commands to inhale the inhaler.
--- NOTE | 2021-03-30 12:35 | NUR ---
SW following. Discussed with RN. SW notified of hospice plans. BA spoke with pt's son, Navin, he is agreeable to hospice and would like to try inpatient hospice if pt qualifies. BA faxed inpatient hospice referral to [facility]. Awaiting acceptance decsion. COVID-19 positive. RN notified. SW will continue to follow.
[2021-03-30] MEDS ORDERED: REMDESIVIR 100mg in NORMAL SALINE 250ML X 4 DAYS IV SCH (14:00)
--- NOTE | 2021-03-30 15:00 | NUR ---
Patient being discharged as inpatient patient and being admitted to inpatient hospice.
--- NOTE | 2021-03-30 15:34 | PDOC ---
[facility] PROGRESS NOTE Date of Service DOS: DATE: 03/30/21 TIME: 15:32 Chief Complaint Chief Complaint Shortness of breath, weakness, falls History of Present Illness History of Present Illness 80-year-old female with past medical history of COPD continues to smoke 3 packs a day presented via EMS last night with 2-week history of generalized malaise, shortness of breath, and diarrhea. covid pos here Denies known exposure to COVID-19. she has not received the COVID-19 vaccinations. EMS reported upon their arrival patient was noted to have a O2 sat down to 80% on room air. EMS denies that patient wears oxygen at baseline. Patient reportedly has had decreased appetite and not feeling well for the past 10 to 14 days. Patient found to be hypoxic upon their arrival down to 80% on room air. Improved with supplemental O2. concern for possible Covid 19 infection. Rapid Covid negative. Covid PCR pos. EKG stable. Hyponatremia noted. Hypokalemia addressed. Patient with history of diarrhea. unwitnessed fall last night at approximately 2130 9-04 in her bedroom where she did strike the right side of her head 03/29 Patient required heparin drip overnight due to elevated troponins. These have since trended down. Patient evaluated at bedside she was nonrebreather when evaluated. She was in notable distress at rest with labored respirations. She was able to be calmed down somewhat however. Patient expressing she does not want to all of the interventions currently in place and wants to just be comfortable at home. Farzaneh urbano on face time in the room agreed that focusing on comfort is in the patient's best interest at this point. Patient and grandson would prefer home hospice. We will start working on establishing this now however may take 24 to 48 hours due to today being a holiday. We will continue current treatments while admitted however will forego any further diagnostic testing or blood work. Full transition to hospice/comfort care on discharge 03/30 Patient and family still wanting hospice. Would prefer to look for inpatient hospice. C social work aware will start process. Vitals/I&O Vitals/I&O: Vital Signs Date Time Temp Pulse Resp B/P (MAP) Pulse Ox O2 Delivery O2 Flow Rate FiO2 03/30/21 13:30 Simple Mask 10.0 03/30/21 11:00 100.0 99 22 157/80 (105) 91 100.0 I & O 03/29/21 03/29/21 03/30/21 15:00 23:00 07:00 Intake Total 0 ml 0 ml 0 ml Balance 0 ml 0 ml 0 ml Physical Exam General: Alert, Cooperative, severe distress Heart: Regular rate, Normal S1, Normal S2 Lungs: Crackles Abdomen: Soft Extremities: No edema, Normal pulses Skin: No rashes, No significant lesion Assessment and Plan Assessmemt and Plan Problems Medical Problems: (1) Diarrhea Status: Acute (2) Hypertension Status: Acute (3) Hypokalemia Status: Acute (4) Hyponatremia Status: Acute (5) Hypoxia Status: Acute (6) Respiratory failure Status: Acute (7) Suspected 2019 novel coronavirus infection Status: Acute Comment Review of Relevant I have reviewed the following items dion (where applicable) has been applied. Medications: Current Medications Medications (Trade) Dose Ordered Sig/Montse Route PRN Reason Start Time Stop Time Status Last Admin Dose Admin Enoxaparin Sodium (Lovenox 40mg Syringe) 40 mg Q24H SQ 03/30/21 09:00 03/30/21 14:24 DC 03/30/21 10:05 Justifications for Admission Other Justification hypoxia, pneumonia KESHA CURRIE MD Mar 30, 2021 15:34
--- NOTE | 2021-04-14 16:48 | PDOC3 ---
[facility]-Discharge Summary Date of Admission: Date of Admission: Mar 28, 2021 Date of Discharge: Date of Discharge: Mar 30, 2021 Admission Diagnosis: Problems: (1) Weakness (2) FTT (failure to thrive) in adult Consults: Consults: Neurology Hospital Course: Hospital Course: History of Present Illness 80-year-old female with past medical history of COPD continues to smoke 3 packs a day presented via EMS last night with 2-week history of generalized malaise, shortness of breath, and diarrhea. covid pos here Denies known exposure to COVID-19. she has not received the COVID-19 vaccinations. EMS reported upon their arrival patient was noted to have a O2 sat down to 80% on room air. EMS denies that patient wears oxygen at baseline. Patient reportedly has had decreased appetite and not feeling well for the past 10 to 14 days. Patient found to be hypoxic upon their arrival down to 80% on room air. Improved with supplemental O2. concern for possible Covid 19 infection. Rapid Covid negative. Covid PCR pos. EKG stable. Hyponatremia noted. Hypokalemia addressed. Patient with history of diarrhea. unwitnessed fall last night at approximately 2130 9-04 in her bedroom where she did strike the right side of her head 03/29 Patient required heparin drip overnight due to elevated troponins. These have since trended down. Patient evaluated at bedside she was nonrebreather when evaluated. She was in notable distress at rest with labored respirations. She was able to be calmed down somewhat however. Patient expressing she does not want to all of the interventions currently in place and wants to just be comfortable at home. Grandson on face time in the room agreed that focusing on comfort is in the patient's best interest at this point. Patient and grandson would prefer home hospice. We will start working on establishing this now however may take 24 to 48 hours due to today being a holiday. We will continue current treatments while admitted however will forego any further diagnostic testing or blood work. Full transition to hospice/comfort care on discharge 03/30 Patient and family still wanting hospice. Would prefer to look for inpatient hospice. C social work aware will start process. Inpatient hospice accepted Disposition: Disposition/Orders: Other (inpatient hospice) Activity: Activity: Resume previous activity Diet: Diet: other (as tolerated) Justicifation of Admission Dx: Justifications for Admission: Justification of Admission Dx: Yes (ftt) KESHA CURRIE MD Apr 14, 2021 16:48
== END 2021-03-30 14:23 | disposition hospice, home (50) | DRG 177 ==
LOC: ER 00:44 → 5 NORTH 02:28
PROVIDERS: ADMIT Internal Medicine; ATTEND Internal Medicine
PROC: XW033E5 Introduction of Remdesivir Anti-infective into Peripheral Vein, Percutaneous Approach, New Technology Group 5 (ICD-10-PCS; principal; 2021-03-30)
DX: U07.1 COVID-19 (principal); J12.82 Pneumonia due to coronavirus disease 2019; E43 Unspecified severe protein-calorie malnutrition; I21.4 Non-ST elevation (NSTEMI) myocardial infarction; J80 Acute respiratory distress syndrome; E87.1 Hypo-osmolality and hyponatremia; J44.0 Chronic obstructive pulmonary disease with (acute) lower respiratory infection; J44.1 Chronic obstructive pulmonary disease with (acute) exacerbation; E87.6 Hypokalemia; F17.210 Nicotine dependence, cigarettes, uncomplicated; I10 Essential (primary) hypertension; K57.30 Diverticulosis of large intestine without perforation or abscess without bleeding; Z51.5 Encounter for palliative care; Z66 Do not resuscitate; Z82.49 Family history of ischemic heart disease and other diseases of the circulatory system; Z82.5 Family history of asthma and other chronic lower respiratory diseases; F41.9 Anxiety disorder, unspecified; M19.90 Unspecified osteoarthritis, unspecified site; G31.9 Degenerative disease of nervous system, unspecified; Z68.24 Body mass index [BMI] 24.0-24.9, adult
CPT/HCPCS: 36415; 70450; 71275; 72125; 74177; 80053; 81001; 82553; 82962; 83605; 83735; 83880; 84484; 85007; 85025; 85520; 87040; 87086; 87426; 87804; 93005; 94760; 96361; 96374; J1100; J1644; J1650; J2270; J2543; J3490; J7030; U0003; U0005; 99291-25; G0378

== ENCOUNTER 2021-03-30 14:40 | Inpatient (IN) | payer OTHER ==
[~2021-03-30] VITALS: Ht 170.2 cm; Wt 71.2 kg
[2021-03-30] MEDS ORDERED: MORPHINE SULFATE 2 MG/ML INJ. IVP PRN (15:45)
[2021-03-30] MEDS ORDERED: NALOXONE 0.4 MG/ML VIAL. IV PRN (15:45)
[2021-03-30] MEDS ORDERED: IV NORMAL SALINE 1000ML BAG 1,000 ML IV SCH (15:45)
[2021-03-30 15:46] VITALS: BP 156/92
[2021-03-30] MEDS ORDERED: SCOPOLAMINE 1.5MG PATCH. TD SCH (16:00)
[2021-03-30] MEDS ORDERED: NICOTINE 21MG PATCH. TD SCH (16:00)
[2021-03-30] MEDS: MORPHINE SULFATE 30 ML IV PRN (16:19)
--- NOTE | 2021-03-30 17:00 | NUR ---
Attempted to start morphine drip on patient, patient alert and verbalized she did not want any morphine at that time. Morphine held. Patient Facetimed with patients marisol Holden and RN gave update.
[2021-03-30 21:53] VITALS: BP 157/96
[2021-03-31] MEDS: MORPHINE SULFATE 30 ML IV PRN (03:08)
--- NOTE | 2021-03-31 05:19 | NUR ---
Patient's grandson/DAVID Holden at bedside. 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 Will continue with plan of care.
--- NOTE | 2021-03-31 08:06 | PDOC3 ---
[facility]-Discharge Summary Date of Admission: Date of Admission: Mar 30, 2021 Date of Discharge: Date of Discharge: Mar 31, 2021 Admission Diagnosis: Admitting Diagnosis: COPD, acute hypoxic respiratory failure Hospital Course: Hospital Course: 80-year-old female with past medical history of COPD continues to smoke 3 packs a day presented via EMS last night with 2-week history of generalized malaise, shortness of breath, and diarrhea. covid pos here Denies known exposure to COVID-19. she has not received the COVID-19 vaccinations. EMS reported upon their arrival patient was noted to have a O2 sat down to 80% on room air. EMS denies that patient wears oxygen at baseline. Patient reportedly has had decreased appetite and not feeling well for the past 10 to 14 days. Patient found to be hypoxic upon their arrival down to 80% on room air. Improved with supplemental O2. concern for possible Covid 19 infection. Rapid Covid negative. Covid PCR pos. EKG stable. Hyponatremia noted. Hypokalemia addressed. Patient with history of diarrhea. unwitnessed fall last night at approximately 2130 9-04 in her bedroom where she did strike the right side of her head 03/29 Patient required heparin drip overnight due to elevated troponins. These have since trended down. Patient evaluated at bedside she was nonrebreather when evaluated. She was in notable distress at rest with labored respirations. She was able to be calmed down somewhat however. Patient expressing she does not want to all of the interventions currently in place and wants to just be comfortable at home. Grandson on face time in the room agreed that focusing on comfort is in the patient's best interest at this point. Patient and grandson would prefer home hospice. We will start working on establishing this now however may take 24 to 48 hours due to today being a holiday. We will continue current treatments while admitted however will forego any further diagnostic testing or blood work. Full transition to hospice/comfort care on discharge 03/30 Patient and family still wanting hospice. Would prefer to look for inpatient hospice. Patient transition to inpatient hospice. 03/31 Patient passed peacefully this morning at 7:30 AM. Grandson at bedside Disposition: Disposition/Orders: Total Time: Total Time: 31 Justicifation of Admission Dx: Justifications for Admission: Justification of Admission Dx: Yes (COPD, acute hypoxic respiratory failure) KESHA CURRIE MD Mar 31, 2021 08:06
--- NOTE | 2021-03-31 09:50 | NUR ---
Came onto shift and patient stated to angela down into the 30's, patient inpatient hospice, DNR. gala Harper RN, checked on patient, patient agonal breathing still having a pulse. Patients marisol Holden at bedside. Patient continued to angela and then increase to 50's to 60 BMP. At 0707 patients monitor alarmed asystole. BRADLEY Harper and this RN checked on patient. Patient was assess individually and no signs of life. Patient was pronounced at 0710. Navin King left and took all personal belongings with him. Body was cleaned, IV's were discontinued. Body was placed in double body bags per COVID protocol and was taken down to the morgue by this RN and REGINE Angeles.
== END 2021-03-31 09:50 | DRG 177 ==
LOC: 5 NORTH 14:40
PROVIDERS: ADMIT Student in an Organized Health Care Education/Training Program; ATTEND Student in an Organized Health Care Education/Training Program
DX: U07.1 COVID-19 (principal); J96.01 Acute respiratory failure with hypoxia; E87.1 Hypo-osmolality and hyponatremia; J44.9 Chronic obstructive pulmonary disease, unspecified; E87.6 Hypokalemia; Z51.5 Encounter for palliative care; R53.81 Other malaise; Z87.891 Personal history of nicotine dependence
CPT/HCPCS: J2060; J2270; J7030; G0378